=== PATIENT | male | born 2000 | race Caucasian/White ===

== ENCOUNTER 2023-01-15 09:30 | Inpatient (IN) | payer BC, SELFPAY ==
[2023-01-15 09:36] VITALS: BP 103/59; BP 124/77; PULSE 77; PULSE 78; RESP 16; TEMP 36.6; O2SAT 100; O2SAT 97; BMI 19.0
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
--- NOTE | 2023-01-15 10:02 | PC.NURSE ---
pt arrived to ED6 by ambulance. pt was staying with his father, Bryant, after moving back here from [place]. per father, he has concerns about pt using something because hes just not right . father reports that he found pt on the floor this morning with vomit on his shirt and around his mouth. pt in unkept in his presentation, vacant expression, malodorous. requires several redirection before following direction. pt denies SI/HI/SHB. father reports he is fearful pt might do something to harm himself. pt stumbling and unsteady in his gait. SHILPA Wade made aware. pt changed over into [facility], NOT [facility] as not indicated. denies AVH. reporting racing thoughts, depression. reports he takes medical marijuana, denies other drug use.
[2023-01-15 10:09] VITALS: BP 111/74
[2023-01-15 10:25] LABS: MANUAL DIFF FLAG NO
[2023-01-15 10:26] LABS: Basophils Percent Auto 0.6 % (0-2); Eosinophils Absolute Auto 0.1 X10*3/uL (0.0-0.4); Eosinophils Percent Auto 2.3 % (0-4); Hematocrit 43.7 % (42.0-52.0); Hemoglobin 15.2 g/dl (14.0-18.0); Imm Gran Abs Auto 0.01 X10*3/uL (0.00-0.03); Imm Gran Pct Auto 0.2 % (0.0-0.4); Lymphocytes Absolute Auto 1.2 X10*3/uL (1.2-4.9); Lymphocytes Percent Auto 24.2 % (20-40); Mean Corpuscular HGB Conc 34.8 g/dl (31.0-36.0); Mean Corpuscular Hemoglobin 32.3 pg (27.0-33.0); Mean Platelet Volume 10.3 fL (9.4-12.4); Monocytes Absolute Auto 0.6 X10*3/uL (0.1-1.2); Monocytes Percent Auto 12.2 % (2-11); Neutrophils Absolute Auto 2.9 x10*3/uL (2.0-8.3); Neutrophils Percent Auto 60.5 % (45-73); Platelet Count 238 X10*3/uL (160-400); Red Cell Distribution Width 11.2 % (11.0-16.0); White Blood Count 4.8 X10*3/uL (4.8-10.8)
--- OUTSIDE RECORDS SUMMARY | 2023-01-15 10:40 | XMS_ITS | Continuity of Care Document ---
Author Name Unknown Organization [facility] er Address [address] [address]- Care Team Providers Care Honing Machine Operator Semiautomatic Name Role Phone Conchita MATUTE, Eddi Pereyra Primary Care Physician Encounter [facility] ACCT R [id number] Date(s): 12/02/19 - 01/01/[address] [address]- [facility] Attending Physician: Krunal Engel Admitting Physician: Krunal Engel Referring Physician: Krunal Engel Allergies, Adverse Reactions, Alerts Substance Reaction Severity Status NKA Active Medications hydrOXYzine hydrochloride 25 mg oral tablet See Instructions, 1 -2 tablet By Mouth daily at bedtime for insomnia., 0 Refills, Maintenance, 11/09/19 13:41:00 EDT Start Date: 11/09/19 Status: Ordered LORazepam 0.5 mg oral tablet 1 tablet = 0.5 mg, By Mouth, Daily, PRN as needed for anxiety, 0 Refills, Maintenance, 11/09/19 13:40:00 EDT Start Date: 11/09/19 Status: Ordered Zoloft 25 mg oral tablet 2 tablet = 50 mg, By Mouth, Daily, 0 Refills, Maintenance, 11/09/19 13:40:00 EDT Start Date: 11/09/19 Status: Ordered Problem List Condition Effective Dates Status Health Status Inform ant Heart murmur(Confirmed) Active Vocal cord dysfunction(Confirmed) Active Social History Social History Type Response Smoking Status Never smoker entered on: 02/09/15 Sex
--- OUTSIDE RECORDS SUMMARY | 2023-01-15 10:40 | XMS_ITS | Continuity of Care Document ---
Author Name Unknown Organization [facility] er Address [address] [address]- Care Team Providers Care Aviation Electrician Name Role Phone Conchita MATUTE, Eddi Pereyra Primary Care Physician [place] [facility] [place] [id number] Date(s): 11/25/19 - 01/01/[address] [address]- [facility] Attending Physician: Carolyn Webb Admitting Physician: Carolyn Webb Allergies, Adverse Reactions, Alerts Substance Reaction Severity [...]
--- NOTE | 2023-01-15 10:41 | PC.NURSE ---
father, bry, informed this marketing copywriter that his is currently working on obtaining a section 35 on the pt
--- OUTSIDE RECORDS SUMMARY | 2023-01-15 10:41 | XMS_ITS | Continuity of Care Document ---
Author Name Unknown Organization [facility] Address [address] [place] [address]- Care Team Providers Care Campground Manager Name Role Phone Conchita MATUTE, Eddi Pereyra Primary Care Physician Encounter [facility] Date(s): 11/22/19 - 03/08/20 [facility] [address] [place] [address]- [facility] Attending Physician: Jamison Corcoran MD Referring Physician: Eddi Arango MD Allergies, Adverse Reactions, Alerts Substance Reaction Severity [...]
--- OUTSIDE RECORDS SUMMARY | 2023-01-15 10:41 | XMS_ITS | Continuity of Care Document ---
Author Name Unknown Organization [facility] ter Address [address] [place] [address]- Care Team Providers Care Marble Cutter Name Role Phone Eddi Arango MD Primary Care Physician Encounter [facility] Date(s): 06/30/19 - 06/30/[address] [address]- [facility] Attending Physician: Eddi Arango MD Allergies, Adverse Reactions, Alerts Substance Reaction Severity Status NKA Active Medications Acetaminophen 0 Refills, Maintenance, 02/05/17 4:40:54 Start Date: 02/05/17 Status: Ordered Problem List Condition Effective Dates Status Health Status Inform ant Heart murmur(Confirmed) Active Vocal cord dysfunction(Confirmed) Active Social History Social History Type Response Smoking Status Never smoker entered on: 02/09/15 Sex
--- OUTSIDE RECORDS SUMMARY | 2023-01-15 10:41 | XMS_ITS | Continuity of Care Document ---
Author Name Unknown Organization [facility] Address [address] [place] [address]- Care Team Providers Care Chinese Medicine Practitioner Name Role Phone Conchita MATUTE, Eddi Pereyra Primary Care Physician Encounter [facility] Date(s): 02/07/20 - 03/08/20 [facility] [address] [place] [address]- [facility] Attending Physician: Krunal Engel Admitting Physician: AdmKrunal rubio Referring Physician: Admtr ArBarbara Allergies, Adverse Reactions, Alerts Substance Reaction Severity [...]
--- OUTSIDE RECORDS SUMMARY | 2023-01-15 10:41 | XMS_ITS | Continuity of Care Document ---
Author Name Unknown Organization [facility] Address [address] [place] [address]- Care Team Providers Care Diet Attendant Name Role Phone Eddi Arango MD Primary Care Physician Encounter [facility] NBR [id number] Date(s): 09/02/19 - 12/31/19 [facility] [address] [place] [address]- [facility] Attending Physician: Jamison Corcoran MD [...]
--- OUTSIDE RECORDS SUMMARY | 2023-01-15 10:42 | XMS_ITS | Continuity of Care Document ---
Author Name Unknown Organization [facility] er Address [address] [address]- Care Team Providers Care Load Blocker Name Role Phone Conchita MATUTE, Eddi Pereyra Primary Care Physician Encounter [facility] ACCT R [id number] Date(s): 11/25/19 - 12/02/[address] [address]- [facility] Attending Physician: Carolyn Webb Admitting Physician: Carolyn [...]
[2023-01-15 10:58] LABS: COVID-19 Test Negative (Negative); IDNOW Serial# BCCEAD1C
[2023-01-15 11:14] LABS: Alanine Aminotransferase 42 U/L (0-40); Albumin Level 4.5 g/dL (3.5-5.0); Alkaline Phosphatase 53 U/L (39-117); Anion Gap 14 (12-20); Aspartate Amino Transferase 27 U/L (5-37); Bilirubin Total 0.9 mg/dL (0.0-1.0); Blood Urea Nitrogen 20 mg/dL (9-16); Calcium 10.4 mg/dL (8.4-10.2); Carbon Dioxide 28 mmol/L (22-29); Chloride 105 mmol/L (96-108); Creatinine Clr Calc Pharmacy 135.2; Estimated Glomerular Filt Rate > 60; Ethanol < 10 mg/dL; Glucose Random 72 mg/dL (60-115); Potassium 3.8 mmol/L (3.3-5.1); Salicylate < 5.0 mg/dL (15-30); Sodium 143 mmol/L (135-145); Total Protein 7.5 g/dL (6.5-8.0)
[2023-01-15 11:39] VITALS: BP 106/59; PULSE 71; O2SAT 97
--- NOTE | 2023-01-15 11:52 | PC.NURSE ---
pt very lethargic. unable to wake at this time. per dad, pt has startle reflex. VSS. awaiting urine for U/A and MICHEL. will continue to monitor
[2023-01-15 11:53] LABS: Acetaminophen LAB < 17 mcg/mL (<30)
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
--- NOTE | 2023-01-15 12:28 | MHC.CARE ---
RN and attending provider aware CARE Team needs toxicology screen prior to intervention due to suspected substance use
--- NOTE | 2023-01-15 13:12 | MHC.CARE ---
CARE Team received a call from [place] Pt has an active Section 35 Warrant
--- NOTE | 2023-01-15 14:04 | ECG_ITS ---
Test Reason : SUBSTANCE USE Blood Pressure : / mmHG Vent. Rate : 058 BPM Atrial Rate : 058 BPM P-R Int : 156 ms QRS Dur : 088 ms QT Int : 396 ms P-R-T Axes : 069 061 050 degrees QTc Int : 388 ms Sinus bradycardia with sinus arrhythmia Early repolarization Otherwise normal ECG No previous ECGs available Referred By: Niurka Tejeda Electronically Signed By:JANIE MCCLELLAN MD
[2023-01-15 15:09] VITALS: BP 104/61; PULSE 66; RESP 14; O2SAT 97
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
--- NOTE | 2023-01-15 15:33 | PC.NURSE ---
pt is ambulatory with unsteady gait but isn't falling down. speech is somewhat slow but clear. axox2. states he smokes marajuana nightly to manage intrusive thoughts . is aware that a urine sample is needed. states he has a shy bladder . awaits crisis eval.
--- NOTE | 2023-01-15 17:08 | MHC.CARE ---
Patient's mother, Vannesa Huerta [phone] calls to relay more background info, she is acutely concerned about his risk. While this instance is remote she reports that two years ago, while on vacation in [facility] patient's mother received a call from [place] police notifying her that they had gotten a call with report that patient had made a facebook / or social media post that he was going to commit suicide. At the time of the [employer] PD's call, patient was with his mom, in the house, and within her sight at all times. She [facility] of this, and did not follow up with any are JO[facility] or ED. Mom asks repeatedly if her son will be d/c without her knowing, and she is re-assured he will not be. Between the need for a CARE team assessment and the active section 35 warrant.
--- NOTE | 2023-01-15 17:17 | PC.NURSE ---
During interaction with pt, he continues to excessively lose focus, when being asked questions, or spoken too. Pt stated that he hears intrusive thoughts, and talks to himself about them. Pt stated he wants to speak to his environmental attorney, but does not know the number.
--- NOTE | 2023-01-15 18:15 | PC.NURSE ---
continues to go to br with cup but never provides urine sample.
--- NOTE | 2023-01-15 18:50 | MHC.CARE ---
attempted to encourage patient to urinate in order to commence the assessment. While attempting to engage him, he reports that he is here because of his mother's mental health issues, states he has only been using cannabis in lieu of prescribed anti depressants etc. T/w inquired into his food intake/ as he appears unsteady on his feet. He reports a history of outpatient treatment. Reports he has been suicidal years ago but is adamant that it was due to side effects of SSRI. He does present with a vacant affect at times, with pauses of notable length during questions. T/w again, reiterated the need to urinate in order to move things along and determine what happens next. He is unaware he has been section 35.
[2023-01-15 19:56] LABS: Appearance Urine Clear; Color Urine Yellow; Glucose Urine UA Negative (Negative); Leukocyte Esterase Urine Negative (Negative); Nitrite Urine Negative (Negative); Specific Gravity - Urine 1.025 (1.005-1.025); Urine Blood Negative (Negative); Urine Ketones Negative (Negative); Urine Protein Negative (Neg-Trace)
[2023-01-15 20:04] LABS: Amphetamine Screen Urine Not Detected (Not Detect); Barbiturates, Urine Not Detected (Not Detect); Benzodiazepines Screen Urine POSITIVE (Not Detect); Cannabinoid Screen Urine POSITIVE (Not Detect); Cocaine Screen Urine Not Detected (Not Detect); Fentanyl, urine Not Detected (Not Detect); Opiate Screen Urine Not Detected (Not Detect); Phencyclidine Screen Urine Not Detected (Not Detect)
--- NOTE | 2023-01-15 20:04 | PC.NURSE ---
per report patient had not voided for 9+ hours with moderate fluid intake, patient was encouraged to void but failed reported he as urinary retention problems, bladder scanned showed 1200 ml of urine, provider notified/spoke with patient/ordered Hopkins catheter, patient was transferred to main ED Bed 3, Hopkins inserted/patient tolerated the procedure/output 1300 ml, provider notified of outcome and procedure, patient is currently in bed resting, urine sample sent for urinalysis, care team notified, patient is awaiting care team assessment, will continue to monitor.
[2023-01-16 06:10] VITALS: BP 109/72; PULSE 60; RESP 16; TEMP 36.6; O2SAT 98
--- NOTE | 2023-01-16 06:23 | PC.NURSE ---
Patient slept through the night, no distress observed/reported, no behavior concerns, patient has Hopkins leg bag, output at 0427 250 ml, care consult ordered for SI, pending evaluation, VSS, will continue to monitior.
--- NOTE | 2023-01-16 08:13 | PC.NURSE ---
pt resting comfortably in stretcher, rr even unlabored, had msu with care team this am. pt reportedly appealing to have pt under sec [address] [facility] for dc needs.
[2023-01-16 14:47] VITALS: BP 125/75; PULSE 60; RESP 18; TEMP 36.6; O2SAT 98
--- NOTE | 2023-01-16 16:41 | PC.ADMIT ---
Tez was admitted to at 1430 from [facility] on [facility] for treatment of depressive disorder. The precipitant of admission includes conflict with family and difficulty obtaining outside providers. He is alert and oriented x4. He was cooperative with admission process. He reports his mood is depressed and attributes this to his family situation. He denies current suicidal and homicidal thoughts and intent. He denies auditory and visual hallucinations. He reports he is able to seek out staff for help if feeling unsafe for any reason. He reports daily marijuana use and states he uses it as a sleep aid. He reports appetite and sleep are poor. Tez states his appetite is up and down and reports frequent nightmares. Tez states that he recently moved back in with his mother and step father, and reports a strained relationship with parents. He states almost all of my problems are because of my mom . Per crisis, EMS was called by parents, who suspected Tez had overdosed on marijuana. Patient reports urinary retention since age 14. Tez was placed on 15 minute checks for safety.
[2023-01-16 16:53] VITALS: BMI 18.4
[2023-01-16 19:55] VITALS: BP 127/76; PULSE 53; RESP 18; TEMP 36.3; O2SAT 97
--- NOTE | 2023-01-16 23:04 | PC.NURSE ---
bladder scan-reporting not being able to void with pain in lower r side quadrant. scan for 580 residual. straigth cath for 700 and follow up residual scan of 126. patient reports relief of abdominal discomfort and tolerated procedure well. urine dark daysi, clear.
[2023-01-17] MEDS: traZODone HCL 50 MG TABLET PO ×2 (01:11→20:32)
[2023-01-17] MEDS: Nicotine Polacrilex 2 MG GUM BUCCAL ×5 (01:11→20:35)
[2023-01-17 07:56] LABS: Estimated Average Glucose 85 mg/dL; Hemoglobin A1c % 4.6 %
[2023-01-17 08:14] LABS: Alanine Aminotransferase 44 U/L (0-40); Alkaline Phosphatase 55 U/L (39-117); Anion Gap 13 (12-20); Aspartate Amino Transferase 27 U/L (5-37); Bilirubin Total 1.2 mg/dL (0.0-1.0); Blood Urea Nitrogen 15 mg/dL (9-16); Calcium 9.8 mg/dL (8.4-10.2); Carbon Dioxide 26 mmol/L (22-29); Chloride 105 mmol/L (96-108); Cholesterol 121 mg/dL; Creatinine Clr Calc Pharmacy 120.4; Estimated Glomerular Filt Rate > 60; Glucose Fasting 91 mg/dL (60-99); HDL Cholesterol 45 mg/dL; LDL Cholesterol Calculated 68 mg/dl; Potassium 4.2 mmol/L (3.3-5.1); Sodium 140 mmol/L (135-145); Total Protein 7.4 g/dL (6.5-8.0); Triglycerides 40 mg/dL
[2023-01-17 08:29] LABS: Free T4 (Free Thyroxine) 0.89 ng/dL (0.71-1.85); Thyroid Stimulating Hormone 0.52 uIU/mL (0.32-4.0)
[2023-01-17 08:39] LABS: Folate 14.2 ng/mL (> or = 4.0); Vitamin B12 1343 pg/mL (200-900)
[2023-01-17 08:57] VITALS: BP 117/70; PULSE 55; RESP 18; TEMP 36.4; O2SAT 97
[2023-01-17] MEDS: Escitalopram Oxalate 10 MG TABLET PO (08:57)
--- NOTE | 2023-01-17 09:33 | PC.NURSE ---
Initial bladder scan showed 455, patient declined initial stratight cath. Taking hot shower which helps him to void.
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
--- NOTE | 2023-01-17 16:13 | PC.NURSE ---
Bladder scan showed 356ml in bladder. Patient requesting to shower before straight cath stating it is helpful with voiding. Declined straight cath at this time.
[2023-01-17] MEDS: cloNIDine HCL 0.1 MG TABLET PO ×2 (16:58→20:32)
--- NOTE | 2023-01-17 17:17 | PC.NURSE ---
Patient reports he voided following his shower. Post void 6ml. No straight cath indicated at this time.
--- NOTE | 2023-01-17 17:42 | PC.NURSE ---
Patient signed conditional voluntary.
[2023-01-17 19:55] VITALS: BP 116/64; PULSE 66; RESP 18; TEMP 36.4; O2SAT 99
[2023-01-18 09:00] VITALS: BP 136/75; PULSE 64; RESP 16; TEMP 35.9; O2SAT 97
[2023-01-18] MEDS: Nicotine Polacrilex 2 MG GUM BUCCAL ×4 (09:02→19:01)
[2023-01-18] MEDS: Milk of Magnesia 30 ML ORAL.SUSP PO (09:26)
[2023-01-18] MEDS: Escitalopram Oxalate 10 MG TABLET PO (09:26)
--- NOTE | 2023-01-18 10:03 | PC.NURSE ---
Patient declined pre void bladder scan. Showered, reported voiding.
--- NOTE | 2023-01-18 10:30 | PC.NURSE ---
Post void bladder scan 29ml.
--- NOTE | 2023-01-18 10:46 | HO.PSYCHPN ---
Subjective Subjective Date of Service: 01/18/23 Reason For Visit: si overdose Interim History: Met with patient; discussed with team Patient said he is doing much better. Feels that the clonidine is extremely helpful and commented on how much easier and was for him to interact socially in the milieu. Patient also reported sleeping. Patient had a good conversation with his father says plan is to live with him on discharge. Patient did sign in yesterday on a CV but later on decided to place a 3 day notice. He remains eager to get set up with outpatient providers. Discussed medication and Lexapro had been started by other physician when orders were transferred. Patient said he wants to stay way from SSRIs given his past experience and agrees to instead increase Trileptal (functional tester typewriters had reviewed risks/side effects this medication with which patient understood and agrees to continue) Patient reports only has trouble urinating and defecating when in the vicinity of other people; in private no trouble Mental Status Exam Mental Status Exam Narrative: Pt is alert and oriented; behavior is cooperative, calm, friendly; patient is not in distress; dressed in hospital attire with good hygiene; mood is described as good and affect congruent; eye contact appropriate; Speech is normal rate, volume and prosody and not pressured; no psychomotor agitation/retardation present; thought process is organized and goal directed; Thought content is on aftercare; otherwise pertinent to relevant topics and without any delusional content, paranoid ideations or grandiosity; denies any SI/HI. There is no evidence of perceptual disturbance. Patients insight and judgment fair Diagnostics Vital Signs (24Hr): Vital Signs - 24 hr 01/17/23 19:55 01/18/23 09:00 Temperature 97.5 F 96.7 F L Pulse Rate 66 64 Respiratory Rate 18 16 Blood Pressure 116/64 136/75 Pulse Oximetry 99 97 Oxygen Delivery Method Room Air Room Air BMI result Body Mass Index 18.4 Labs 01/15/23 10:20 01/17/23 07:00 Labs: Laboratory Results - last 48 hr 01/17/23 01/17/23 01/17/23 07:00 07:00 07:00 Sodium 140 Potassium 4.2 Chloride 105 Carbon Dioxide 26 Anion Gap 13 BUN 15 Creatinine 0.83 Estim Creat Clear Calc 120.4 Estimated GFR > 60 Fasting Glucose 91 Estimat Average Glucose 85 Hemoglobin A1c % 4.6 Calcium 9.8 Total Bilirubin 1.2 H AST 27 ALT 44 H Alkaline Phosphatase 55 Total Protein 7.4 Albumin 4.0 Triglycerides 40 Cholesterol 121 LDL Cholesterol, Calc 68 HDL Cholesterol 45 Vitamin B12 1343 H Folate 14.2 TSH 0.52 Free T4 0.89 Medications Medications Current Medications Acetaminophen (Acetaminophen 325 Mg Tablet) 650 mg PO Q6H PRN PRN Reason: Headache/Pain Mild Scale (1-3) Al Hydroxide/Mg Hydroxide (Magnesium Hydrox/Alum Hydrox 30 Ml Oral.Susp) 30 ml PO Q6H PRN PRN Reason: Heartburn/Nausea Clonidine HCl (Clonidine Hcl 0.1 Mg Tablet) 0.1 mg PO BEDTIME JODY; Protocol Last Admin: 01/17/23 20:32 Dose: 0.1 mg Clonidine HCl (Clonidine Hcl 0.1 Mg Tablet) 0.1 mg PO Q4H PRN; Protocol PRN Reason: anxiety Escitalopram Oxalate (Escitalopram Oxalate 10 Mg Tablet) 10 mg PO DAILY JODY Last Admin: 01/18/23 09:26 Dose: 10 mg Magnesium Hydroxide (Milk Of Magnesia 30 Ml Oral.Susp) 30 ml PO DAILY PRN PRN Reason: Constipation Last Admin: 01/18/23 09:26 Dose: 30 ml Nicotine Polacrilex (Nicotine Polacrilex 2 Mg Gum) 2 mg BUCCAL Q2H PRN PRN Reason: Nicotine Cravings Last Admin: 01/18/23 09:02 Dose: 2 mg Oxcarbazepine (Oxcarbazepine 150 Mg Tablet) 150 mg PO BID JODY Trazodone HCl (Trazodone Hcl 50 Mg Tablet) 50 mg PO BEDTIME MRX1 PRN PRN Reason: Insomnia Last Admin: 01/17/23 20:32 Dose: 50 mg Allergies Allergies Allergy/AdvReac Type Severity Reaction Status Date / Time No Known Allergies Allergy Unverified 03/22/20 19:37 [No Known Allergies*] Assessment & Plan Assessment & Plan (1) Post-traumatic stress disorder: Status: Acute Code(s): F43.10 - Post-traumatic stress disorder, unspecified (2) MDD (major depressive disorder), recurrent severe, without psychosis: Status: Acute Code(s): F33.2 - Major depressive disorder, recurrent severe without psychotic features Plan Patient is a 22-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 Patient has a urinary Hopkins catheter in place reporting history of trouble urinating since childhood. Patient's mother reports that for the past 3 or 4 days he has remained in his room only, not eating at all, not attending to any ADLs. She reports he talked about suicide and that he had bought a rope in preparation; mother reports that she did in fact find a rope in his room. Patient says he did say he did not feel like in here anymore but never said he was suicidal and denies that he ever bought a rope or that that rope was his. Patient is very focused on the fact that his mother is emotionally reactive and emotionally abusive. He agrees that he was having a hard time but saying that he was talking to his friends online which he found comforting. Patient breaks down in sob, saying he feels rejected and broken; he references past severe bullying in school in addition to what he feels was and emotionally abusive upbringing. Patient however is very open to treatment and medication management. He also agrees that he needs a therapist just wants 1 that is private will not reveal things to his mother. Patient denies any history of manic type episodes or behaviors. Denies other drug use other than cannabis. Impression Patient agrees that he needs help and is eager to see if medication management will be effective; also wants outpatient providers. It is not clear exactly what happened prior to this admission and to what degree patient was dysregulated or suicidal. He remains adamant that he was never actually suicidal and that he did not get a rope that his mother is exaggerating and fabricating. Patient continues to deny any SI at all. He says he thinks he doing well enough and that he can use his friends for support. Patient did come down over course of interview and seemed to be engaged and forthcoming. The remains significant difference is in reporting. For now, Will keep patient on the unit to demonstrate continued safety and appropriate, safe behaviors, as well as medication management; will also gather more collateral. Hospital course: 01/18 patient doing much better with noticeably brighter affect; feels clonidine has helped so much that he is able to interact with others with little anxiety. Agrees to increasing Trileptal since does not want to be on SSRI. Patient did sign in but then later put in a 3 day notice feeling that he will be stable and able to continue treatment as an outpatient; he does however want help getting outpatient providers. Patient remains in good behavioral and impulse control. His plan is to discharge and limit his father's. Plan: 3 day notice Q 15 minute checks Labs ordered for 01/20: Musa, BRADLY Continue clonidine 0.1 mg q.h.s. for sleep and as a for p.r.n. for anxiety; helping well Increase Trileptal to 300 mg b.i.d.; for anxiety given adverse reaction to SSRIs which included suicidal ideation Help set up outpatient providers for which patient is eager Continue to gather collateral. Significant history of parent-child discord which might make collateral gathering difficult Patient educated on: diagnosis, medication risk/benefits and therapeutic strategies Informed Consent: understands Reason for continued inpatient stay Substantial Risk for: stable for discharge and med/psych decompensation Time Spent With Patient Time: Total time managing care of this patient today ____ minutes.
[2023-01-18] MEDS: cloNIDine HCL 0.1 MG TABLET PO ×2 (15:20→20:46)
--- NOTE | 2023-01-18 17:18 | PC.NURSE ---
Bladder scan completed. Greater than 326. Patient reports he is going to shower. Patient declines straight cath needed at this time.
--- NOTE | 2023-01-18 17:19 | PC.NURSE ---
Tez had just gotten out of the shower, reported voiding during shower. Upon bladder scanning, no distention noted, when asked if he had any pain or discomfort stated No. Bladder scanned showed 4mL
--- NOTE | 2023-01-18 17:53 | PC.NURSE ---
Patient submitted 3 day note.
[2023-01-18 20:44] VITALS: BP 144/96; PULSE 74; TEMP 37; O2SAT 94
[2023-01-18] MEDS: OXcarbazepine 300 MG TABLET PO (20:46)
[2023-01-19 08:40] VITALS: BP 129/71; PULSE 75; RESP 16; TEMP 36.4; O2SAT 96
[2023-01-19] MEDS: OXcarbazepine 300 MG TABLET PO ×2 (08:41→21:11)
[2023-01-19] MEDS: Nicotine Polacrilex 2 MG GUM BUCCAL ×4 (09:07→21:27)
--- NOTE | 2023-01-19 11:42 | HO.PSYCHPN ---
Subjective Subjective Date of Service: 01/19/23 Reason For Visit: si overdose Interim History: Met with patient; discussed with team Patient reports he had a panic attack earlier today when licensed master social worker was reviewing relationship with his mother and history of trauma was discussed. He said clonidine was significantly helpful in calming down. Otherwise patient says he remains doing much better, good mood, future oriented and without any SI at all. Patient shares that he is optimistic about getting into outpatient treatment. Remains focused on discharge plan of going to his father's. Says medications are helping any wants to continue with them. Patient has remained in good behavioral and impulse control Mental Status Exam Mental Status Exam Narrative: Pt is alert and oriented; behavior is cooperative, calm, friendly; patient is not in distress; dressed in hospital attire with good hygiene; mood is described as good and affect congruent; eye contact appropriate; Speech is normal rate, volume and prosody and not pressured; no psychomotor agitation/retardation present; thought process is organized and goal directed; Thought content is on aftercare; otherwise pertinent to relevant topics and without any delusional content, paranoid ideations or grandiosity; denies any SI/HI. There is no evidence of perceptual disturbance. Patients insight and judgment fair Diagnostics Vital Signs (24Hr): Vital Signs - 24 hr 01/18/23 20:44 01/19/23 08:40 Temperature 98.6 F 97.5 F Pulse Rate 74 75 Respiratory Rate 16 Blood Pressure 144/96 H 129/71 Pulse Oximetry 94 96 Oxygen Delivery Method Room Air Room Air BMI result Body Mass Index 18.4 Labs 01/15/23 10:20 01/17/23 07:00 Medications Medications Current Medications Acetaminophen (Acetaminophen 325 Mg Tablet) 650 mg PO Q6H PRN PRN Reason: Headache/Pain Mild Scale (1-3) Al Hydroxide/Mg Hydroxide (Magnesium Hydrox/Alum Hydrox 30 Ml Oral.Susp) 30 ml PO Q6H PRN PRN Reason: Heartburn/Nausea Clonidine HCl (Clonidine Hcl 0.1 Mg Tablet) 0.1 mg PO BEDTIME JODY; Protocol Last Admin: 01/18/23 20:46 Dose: 0.1 mg Clonidine HCl (Clonidine Hcl 0.1 Mg Tablet) 0.1 mg PO Q4H PRN; Protocol PRN Reason: anxiety Last Admin: 01/18/23 15:20 Dose: 0.1 mg Magnesium Hydroxide (Milk Of Magnesia 30 Ml Oral.Susp) 30 ml PO DAILY PRN PRN Reason: Constipation Last Admin: 01/18/23 09:26 Dose: 30 ml Nicotine Polacrilex (Nicotine Polacrilex 2 Mg Gum) 2 mg BUCCAL Q2H PRN PRN Reason: Nicotine Cravings Last Admin: 01/19/23 09:07 Dose: 2 mg Oxcarbazepine (Oxcarbazepine 300 Mg Tablet) 300 mg PO BID JODY Last Admin: 01/19/23 08:41 Dose: 300 mg Trazodone HCl (Trazodone Hcl 50 Mg Tablet) 50 mg PO BEDTIME MRX1 PRN PRN Reason: Insomnia Last Admin: 01/17/23 20:32 Dose: 50 mg Allergies Allergies Allergy/AdvReac Type Severity Reaction Status Date / Time No Known Allergies Allergy Unverified 03/22/20 19:37 [No Known Allergies*] Assessment & Plan Assessment & Plan (1) Post-traumatic stress disorder: Status: Acute Code(s): F43.10 - Post-traumatic stress disorder, unspecified (2) MDD (major depressive disorder), recurrent severe, without psychosis: Status: Acute Code(s): F33.2 - Major depressive disorder, recurrent severe without psychotic features Plan Patient is a 22-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 Patient has a urinary Hopkins catheter in place reporting history of trouble urinating since childhood. Patient's mother reports that for the past 3 or 4 days he has remained in his room only, not eating at all, not attending to any ADLs. She reports he talked about suicide and that he had bought a rope in preparation; mother reports that she did in fact find a rope in his room. Patient says he did say he did not feel like in here anymore but never said he was suicidal and denies that he ever bought a rope or that that rope was his. Patient is very focused on the fact that his mother is emotionally reactive and emotionally abusive. He agrees that he was having a hard time but saying that he was talking to his friends online which he found comforting. Patient breaks down in sob, saying he feels rejected and broken; he references past severe bullying in school in addition to what he feels was and emotionally abusive upbringing. Patient however is very open to treatment and medication management. He also agrees that he needs a therapist just wants 1 that is private will not reveal things to his mother. Patient denies any history of manic type episodes or behaviors. Denies other drug use other than cannabis. Impression Patient agrees that he needs help and is eager to see if medication management will be effective; also wants outpatient providers. It is not clear exactly what happened prior to this admission and to what degree patient was dysregulated or suicidal. He remains adamant that he was never actually suicidal and that he did not get a rope that his mother is exaggerating and fabricating. Patient continues to deny any SI at all. He says he thinks he doing well enough and that he can use his friends for support. Patient did come down over course of interview and seemed to be engaged and forthcoming. The remains significant difference is in reporting. For now, Will keep patient on the unit to demonstrate continued safety and appropriate, safe behaviors, as well as medication management; will also gather more collateral. Hospital course: 01/18 patient doing much better with noticeably brighter affect; feels clonidine has helped so much that he is able to interact with others with little anxiety. Agrees to increasing Trileptal since does not want to be on SSRI. Patient did sign in but then later put in a 3 day notice feeling that he will be stable and able to continue treatment as an outpatient; he does however want help getting outpatient providers. Patient remains in good behavioral and impulse control. His plan is to discharge and limit his father's. 01/19 patient remains stable; did have a panic attack but was able to use clonidine to good effect. Otherwise remains in good behavioral and impulse control. Plan: 3 day notice Q 15 minute checks Labs ordered for 01/20: BRADLY Vigil Continue clonidine 0.1 mg q.h.s. for sleep and as a for p.r.n. for anxiety; helping well Continue Trileptal to 300 mg b.i.d.; for anxiety given adverse reaction to SSRIs which included suicidal ideation -ordered associated labs Help set up outpatient providers for which patient is eager Continue to gather collateral. Significant history of parent-child discord which might make collateral gathering difficult Patient educated on: diagnosis, medication risk/benefits and therapeutic strategies Informed Consent: understands Reason for continued inpatient stay Substantial Risk for: stable for discharge Time Spent With Patient Time: Total time managing care of this patient today ____ minutes.
[2023-01-19] MEDS: cloNIDine HCL 0.1 MG TABLET PO ×2 (12:37→21:11)
--- NOTE | 2023-01-19 16:32 | PC.NURSE ---
Patient declined AM bladder scan. Reports voiding following shower. Approached for 1600 bladder scan, reports voiding about 1 hour ago . Denies any discomfort or pressure at this time.
[2023-01-19 20:58] VITALS: BP 129/92; PULSE 67; RESP 16; TEMP 36.5; O2SAT 98
[2023-01-19] MEDS: Melatonin 3 MG TABLET 6 MG PO (21:11)
[2023-01-20 00:30] VITALS: BP 170/99; PULSE 126; RESP 22
[2023-01-20] MEDS: cloNIDine HCL 0.1 MG TABLET PO ×3 (00:42→16:19)
[2023-01-20] MEDS: traZODone HCL 50 MG TABLET PO ×2 (00:43→20:56)
[2023-01-20 08:30] VITALS: BP 140/74; PULSE 60; RESP 18; TEMP 36.9; O2SAT 97
[2023-01-20 08:33] LABS: MANUAL DIFF FLAG NO
[2023-01-20 08:42] LABS: Basophils Percent Auto 0.4 % (0-2); Eosinophils Percent Auto 0.1 % (0-4); Hematocrit 45.2 % (42.0-52.0); Hemoglobin 15.8 g/dl (14.0-18.0); Imm Gran Abs Auto 0.03 X10*3/uL (0.00-0.03); Imm Gran Pct Auto 0.4 % (0.0-0.4); Lymphocytes Absolute Auto 1.2 X10*3/uL (1.2-4.9); Lymphocytes Percent Auto 15.4 % (20-40); Mean Corpuscular Hemoglobin 32.4 pg (27.0-33.0); Mean Corpuscular Volume 92.8 fL (80.0-98.0); Mean Platelet Volume 10.5 fL (9.4-12.4); Monocytes Absolute Auto 0.7 X10*3/uL (0.1-1.2); Monocytes Percent Auto 8.5 % (2-11); Neutrophils Absolute Auto 5.8 x10*3/uL (2.0-8.3); Neutrophils Percent Auto 75.2 % (45-73); Platelet Count 254 X10*3/uL (160-400); Red Blood Count 4.87 X10*6/uL (4.60-5.80); Red Cell Distribution Width 11.1 % (11.0-16.0); White Blood Count 7.7 X10*3/uL (4.8-10.8)
[2023-01-20] MEDS: Nicotine Polacrilex 2 MG GUM BUCCAL ×3 (08:59→16:55)
[2023-01-20] MEDS: OXcarbazepine 300 MG TABLET PO ×2 (08:59→20:56)
[2023-01-20 09:12] LABS: Anion Gap 14 (12-20); Blood Urea Nitrogen 12 mg/dL (9-16); Calcium 10.1 mg/dL (8.4-10.2); Carbon Dioxide 26 mmol/L (22-29); Chloride 105 mmol/L (96-108); Creatinine Clr Calc Pharmacy 133.3; Estimated Glomerular Filt Rate > 60; Glucose Random 108 mg/dL (60-115); Sodium 141 mmol/L (135-145)
[2023-01-20 12:20] VITALS: BP 159/98; PULSE 91; RESP 18; O2SAT 97
--- NOTE | 2023-01-20 15:29 | HO.PSYCHPN ---
Subjective Subjective Date of Service: 01/20/23 Reason For Visit: si overdose Interim History: calm, cooperative. appears tense and anxious. discuss his positive response to clonidine. agrees to increase HS clonidine to 0.2 mg as he continues to have trouble sleeping. also agrees to schedule clonidine twice daily, at 1000 and 1600. per staff, 3-day up tomorrow. meds helpful, especially clonidine. panic attacks x 2 yesterday, although one sounded as thought it was really a nightmare. at the time of the nightmare, pt was described as psychotic, hyperverbal, disorganized. Mental Status Exam Mental Status Exam Narrative: Pt is alert and oriented; behavior is cooperative, calm, friendly; patient is not in distress; dressed in hospital attire with poor hygiene; mood is described as OK, i guess and affect congruent; eye contact appropriate; Speech is normal rate, volume and prosody and not pressured; no psychomotor agitation/retardation present; thought process is organized and goal directed; Thought content is non-psychotic; otherwise pertinent to relevant topics; denies any SI/HI. There is no evidence of perceptual disturbance. Patients insight and judgment fair Diagnostics Vital Signs (24Hr): Vital Signs - 24 hr 01/19/23 20:58 01/20/23 00:30 01/20/23 08:30 Temperature 97.7 F 98.4 F Pulse Rate 67 126 H 60 Respiratory Rate 16 22 H 18 Blood Pressure 129/92 H 170/99 H 140/74 H Pulse Oximetry 98 97 Oxygen Delivery Method Room Air Room Air 01/20/23 12:20 Temperature Pulse Rate 91 Respiratory Rate 18 Blood Pressure 159/98 H Pulse Oximetry 97 Oxygen Delivery Method Room Air BMI result Body Mass Index 18.4 Labs 01/20/23 08:26 01/20/23 08:26 Labs: Laboratory Results - last 48 hr 01/20/23 01/20/23 08:26 08:26 WBC 7.7 RBC 4.87 Hgb 15.8 Hct 45.2 MCV 92.8 MCH 32.4 MCHC 35.0 RDW 11.1 Plt Count 254 MPV 10.5 Immature Gran % (Auto) 0.4 Neut % (Auto) 75.2 H Lymph % (Auto) 15.4 L [place] % (Auto) 8.5 Eos % (Auto) 0.1 Baso % (Auto) 0.4 Lymph # (Auto) 1.2 [place] # (Auto) 0.7 Eos # (Auto) 0.0 Baso # (Auto) 0.0 Abs Immat Gran (auto) 0.03 Absolute Neuts (auto) 5.8 Absolute Nucleated RBC 0.000 Nucleated RBC % (auto) 0.0 Sodium 141 Potassium 4.0 Chloride 105 Carbon Dioxide 26 Anion Gap 14 BUN 12 Creatinine 0.75 Estim Creat Clear Calc 133.3 Estimated GFR > 60 Random Glucose 108 Calcium 10.1 Medications Medications Current Medications Acetaminophen (Acetaminophen 325 Mg Tablet) 650 mg PO Q6H PRN PRN Reason: Headache/Pain Mild Scale (1-3) Al Hydroxide/Mg Hydroxide (Magnesium Hydrox/Alum Hydrox 30 Ml Oral.Susp) 30 ml PO Q6H PRN PRN Reason: Heartburn/Nausea Clonidine HCl (Clonidine Hcl 0.1 Mg Tablet) 0.1 mg PO Q4H PRN; Protocol PRN Reason: anxiety Last Admin: 01/20/23 00:42 Dose: 0.1 mg Clonidine HCl (Clonidine Hcl 0.2 Mg Tablet) 0.2 mg PO BEDTIME JODY; Protocol Clonidine HCl (Clonidine Hcl 0.1 Mg Tablet) 0.1 mg PO BID@1000,1600 JODY; Protocol Magnesium Hydroxide (Milk Of Magnesia 30 Ml Oral.Susp) 30 ml PO DAILY PRN PRN Reason: Constipation Last Admin: 01/18/23 09:26 Dose: 30 ml Melatonin (Melatonin 3 Mg Tablet) 6 mg PO BEDTIME JODY Last Admin: 01/19/23 21:11 Dose: 6 mg Nicotine Polacrilex (Nicotine Polacrilex 2 Mg Gum) 2 mg BUCCAL Q2H PRN PRN Reason: Nicotine Cravings Last Admin: 01/20/23 12:26 Dose: 2 mg Oxcarbazepine (Oxcarbazepine 300 Mg Tablet) 300 mg PO BID JODY Last Admin: 01/20/23 08:59 Dose: 300 mg Trazodone HCl (Trazodone Hcl 50 Mg Tablet) 50 mg PO BEDTIME MRX1 PRN PRN Reason: Insomnia Last Admin: 01/20/23 00:43 Dose: 50 mg Allergies Allergies Allergy/AdvReac Type Severity Reaction Status Date / Time No Known Allergies Allergy Unverified 03/22/20 19:37 [No Known Allergies*] Assessment & Plan Assessment & Plan (1) Post-traumatic stress disorder: Status: Acute Code(s): F43.10 - Post-traumatic stress disorder, unspecified (2) MDD (major depressive disorder), recurrent severe, without psychosis: Status: Acute Code(s): F33.2 - Major depressive disorder, recurrent severe without psychotic features Plan Patient is a 22-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 Patient has a urinary Hopkins catheter in place reporting history of trouble urinating since childhood. Patient's mother reports that for the past 3 or 4 days he has remained in his room only, not eating at all, not attending to any ADLs. She reports he talked about suicide and that he had bought a rope in preparation; mother reports that she did in fact find a rope in his room. Patient says he did say he did not feel like in here anymore but never said he was suicidal and denies that he ever bought a rope or that that rope was his. Patient is very focused on the fact that his mother is emotionally reactive and emotionally abusive. He agrees that he was having a hard time but saying that he was talking to his friends online which he found comforting. Patient breaks down in sob, saying he feels rejected and broken; he references past severe bullying in school in addition to what he feels was and emotionally abusive upbringing. Patient however is very open to treatment and medication management. He also agrees that he needs a therapist just wants 1 that is private will not reveal things to his mother. Patient denies any history of manic type episodes or behaviors. Denies other drug use other than cannabis. Impression Patient agrees that he needs help and is eager to see if medication management will be effective; also wants outpatient providers. It is not clear exactly what happened prior to this admission and to what degree patient was dysregulated or suicidal. He remains adamant that he was never actually suicidal and that he did not get a rope that his mother is exaggerating and fabricating. Patient continues to deny any SI at all. He says he thinks he doing well enough and that he can use his friends for support. Patient did come down over course of interview and seemed to be engaged and forthcoming. The remains significant difference is in reporting. For now, Will keep patient on the unit to demonstrate continued safety and appropriate, safe behaviors, as well as medication management; will also gather more collateral. Hospital course: 01/18 patient doing much better with noticeably brighter affect; feels clonidine has helped so much that he is able to interact with others with little anxiety. Agrees to increasing Trileptal since does not want to be on SSRI. Patient did sign in but then later put in a 3 day notice feeling that he will be stable and able to continue treatment as an outpatient; he does however want help getting outpatient providers. Patient remains in good behavioral and impulse control. His plan is to discharge and limit his father's. Plan: 3 day notice Q 15 minute checks Labs ordered for 01/20: BRADLY Vigil Continue clonidine 0.1 mg q.h.s. for sleep and as a for p.r.n. for anxiety; helping well Increase Trileptal to 300 mg b.i.d.; for anxiety given adverse reaction to SSRIs which included suicidal ideation Help set up outpatient providers for which patient is eager Continue to gather collateral. Significant history of parent-child discord which might make collateral gathering difficult 01/20: increase HS clonidine to 0.2 mg. schedule clonidine during the day at 1000 and 1600. anxious, nightmares. Reason for continued inpatient stay Substantial Risk for: harm to self, inability to function and rapid decompensation Time Spent With Patient Time: Total time managing care of this patient today __25__ minutes.
[2023-01-20 16:20] VITALS: BP 154/98; PULSE 68; RESP 18
[2023-01-20 19:40] VITALS: BP 121/77; PULSE 60; RESP 18; TEMP 36.6; O2SAT 98
[2023-01-20] MEDS: Melatonin 3 MG TABLET 6 MG PO (20:56)
[2023-01-20] MEDS: cloNIDine HCL 0.2 MG TABLET PO (20:58)
[2023-01-21] MEDS: cloNIDine HCL 0.1 MG TABLET PO ×4 (02:29→16:04)
[2023-01-21] MEDS: Nicotine Polacrilex 2 MG GUM BUCCAL ×2 (02:29→22:36)
[2023-01-21 06:00] VITALS: BP 130/83; PULSE 66; RESP 20; TEMP 36.6; O2SAT 99
[2023-01-21] MEDS: OXcarbazepine 300 MG TABLET PO (08:47)
[2023-01-21] MEDS: Nicotine Polacrilex 2 MG GUM 4 MG BUCCAL (14:31)
[2023-01-21] MEDS: OLANZapine 5 MG TABLET PO (14:48)
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
--- NOTE | 2023-01-21 16:26 | PC.NURSE ---
patient had bladder scan at this time, 141 ML
[2023-01-21 20:00] VITALS: BP 128/79; PULSE 74; RESP 18; TEMP 36.6; O2SAT 99
[2023-01-21] MEDS: Melatonin 3 MG TABLET 6 MG PO (22:11)
[2023-01-21] MEDS: cloNIDine HCL 0.2 MG TABLET PO (22:12)
[2023-01-21] MEDS: traZODone HCL 50 MG TABLET PO (22:12)
[2023-01-21] MEDS: OLANZapine 10 MG TABLET PO (22:12)
[2023-01-21] MEDS: OXcarbazepine 150 MG TABLET PO (22:12)
[2023-01-22] MEDS: OLANZapine 5 MG TABLET PO ×2 (02:31→13:22)
[2023-01-22] MEDS: cloNIDine HCL 0.1 MG TABLET PO ×3 (02:32→15:58)
[2023-01-22 07:00] VITALS: BMI 18.0
[2023-01-22 10:16] VITALS: BP 154/92; PULSE 99; TEMP 37.1; O2SAT 97
[2023-01-22] MEDS: OXcarbazepine 150 MG TABLET PO ×2 (10:23→22:16)
[2023-01-22] MEDS: Nicotine Polacrilex 2 MG GUM 4 MG BUCCAL ×2 (10:25→20:12)
[2023-01-22] MEDS: OLANZapine 2.5 MG TABLET PO (15:58)
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
[2023-01-22] MEDS: diazePAM 5 MG TABLET PO ×2 (16:53→22:15)
[2023-01-22 16:56] LABS: MANUAL DIFF FLAG NO
[2023-01-22 17:00] LABS: Basophils Percent Auto 0.4 % (0-2); Eosinophils Percent Auto 0.1 % (0-4); Hematocrit 45.6 % (42.0-52.0); Hemoglobin 15.9 g/dl (14.0-18.0); Imm Gran Abs Auto 0.02 X10*3/uL (0.00-0.03); Imm Gran Pct Auto 0.3 % (0.0-0.4); Lymphocytes Absolute Auto 1.3 X10*3/uL (1.2-4.9); Lymphocytes Percent Auto 18.6 % (20-40); Mean Corpuscular HGB Conc 34.9 g/dl (31.0-36.0); Mean Corpuscular Hemoglobin 32.4 pg (27.0-33.0); Mean Corpuscular Volume 92.9 fL (80.0-98.0); Mean Platelet Volume 10.6 fL (9.4-12.4); Monocytes Absolute Auto 0.7 X10*3/uL (0.1-1.2); Monocytes Percent Auto 10.6 % (2-11); Neutrophils Absolute Auto 4.8 x10*3/uL (2.0-8.3); Platelet Count 265 X10*3/uL (160-400); Red Blood Count 4.91 X10*6/uL (4.60-5.80); Red Cell Distribution Width 11.3 % (11.0-16.0); White Blood Count 6.9 X10*3/uL (4.8-10.8)
[2023-01-22 19:40] VITALS: BP 125/69; PULSE 68; RESP 18; TEMP 36.6; O2SAT 98
[2023-01-22 20:37] LABS: Alanine Aminotransferase 38 U/L (0-40); Albumin Level 4.9 g/dL (3.5-5.0); Alkaline Phosphatase 61 U/L (39-117); Anion Gap 14 (12-20); Aspartate Amino Transferase 25 U/L (5-37); Bilirubin Total 0.7 mg/dL (0.0-1.0); Blood Urea Nitrogen 12 mg/dL (9-16); Carbon Dioxide 31 mmol/L (22-29); Chloride 105 mmol/L (96-108); Creatinine Clr Calc Pharmacy 120.1; Estimated Glomerular Filt Rate > 60; Glucose Random 90 mg/dL (60-115); Potassium 4.5 mmol/L (3.3-5.1); Sodium 145 mmol/L (135-145); Total Protein 8.1 g/dL (6.5-8.0)
[2023-01-22] MEDS: Melatonin 3 MG TABLET 6 MG PO (22:15)
[2023-01-22] MEDS: OLANZapine 10 MG TABLET PO (22:15)
[2023-01-22] MEDS: cloNIDine HCL 0.2 MG TABLET PO (22:15)
[2023-01-23] MEDS: cloNIDine HCL 0.1 MG TABLET PO ×2 (09:37→16:59)
[2023-01-23 09:40] VITALS: BP 137/83; PULSE 74; RESP 18; TEMP 36.6; O2SAT 99
[2023-01-23] MEDS: OLANZapine 2.5 MG TABLET PO ×2 (09:41→14:32)
[2023-01-23] MEDS: OXcarbazepine 150 MG TABLET PO (09:41)
[2023-01-23] MEDS: diazePAM 5 MG TABLET PO ×2 (09:41→22:35)
[2023-01-23] MEDS: Nicotine Polacrilex 2 MG GUM BUCCAL (13:40)
[2023-01-23] MEDS: Nicotine Polacrilex 2 MG GUM 4 MG BUCCAL (13:40)
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
[2023-01-23 16:57] VITALS: BP 126/77; PULSE 80
[2023-01-23 22:30] VITALS: BP 98/66; PULSE 61; RESP 18; TEMP 36.1; O2SAT 98
[2023-01-23] MEDS: Melatonin 3 MG TABLET 6 MG PO (22:35)
[2023-01-23] MEDS: cloNIDine HCL 0.2 MG TABLET PO (22:35)
[2023-01-23] MEDS: OLANZapine 10 MG TABLET PO (22:35)
[2023-01-24 08:42] VITALS: BP 122/70; PULSE 50; RESP 18; TEMP 36.2; O2SAT 98
[2023-01-24] MEDS: OLANZapine 2.5 MG TABLET PO ×2 (08:49→15:50)
[2023-01-24] MEDS: diazePAM 5 MG TABLET PO ×2 (08:49→22:19)
[2023-01-24] MEDS: cloNIDine HCL 0.1 MG TABLET PO ×2 (08:49→15:50)
[2023-01-24] MEDS: Nicotine Polacrilex 2 MG GUM 4 MG BUCCAL ×4 (09:12→22:49)
[2023-01-24 15:48] VITALS: BP 107/58; PULSE 68; RESP 16; O2SAT 99
--- NOTE | 2023-01-24 16:15 | PC.NURSE ---
Pt submitted 3 day notice
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
[2023-01-24 22:16] VITALS: BP 133/97; PULSE 77; RESP 18; TEMP 35.8; O2SAT 98
[2023-01-24] MEDS: Melatonin 3 MG TABLET 6 MG PO (22:19)
[2023-01-24] MEDS: OLANZapine 10 MG TABLET PO (22:19)
[2023-01-24] MEDS: cloNIDine HCL 0.2 MG TABLET PO (22:19)
[2023-01-25 06:00] VITALS: BP 127/69; PULSE 76; RESP 18; TEMP 36.6; O2SAT 98
[2023-01-25] MEDS: OLANZapine 2.5 MG TABLET PO ×2 (08:58→14:14)
[2023-01-25] MEDS: diazePAM 5 MG TABLET PO ×2 (08:58→20:14)
[2023-01-25] MEDS: cloNIDine HCL 0.1 MG TABLET PO ×2 (09:00→16:16)
[2023-01-25] MEDS: Nicotine Polacrilex 2 MG GUM 4 MG BUCCAL ×4 (09:36→20:14)
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
[2023-01-25 16:10] VITALS: BP 113/69; PULSE 75
[2023-01-25 19:35] VITALS: BP 128/84; PULSE 91; RESP 16; TEMP 36.6; O2SAT 97
[2023-01-25] MEDS: Melatonin 3 MG TABLET 6 MG PO (20:13)
[2023-01-25] MEDS: cloNIDine HCL 0.2 MG TABLET PO (20:13)
[2023-01-25] MEDS: OLANZapine 10 MG TABLET PO (20:14)
[2023-01-26] MEDS: traZODone HCL 50 MG TABLET PO (01:16)
[2023-01-26 08:56] VITALS: BP 135/69; PULSE 59; RESP 16; TEMP 36.7; O2SAT 96
[2023-01-26] MEDS: OLANZapine 2.5 MG TABLET PO ×2 (08:58→14:42)
[2023-01-26] MEDS: diazePAM 5 MG TABLET PO ×2 (08:58→21:41)
[2023-01-26] MEDS: Nicotine Polacrilex 2 MG GUM 4 MG BUCCAL ×4 (09:31→19:15)
[2023-01-26] MEDS: cloNIDine HCL 0.1 MG TABLET PO ×2 (10:45→16:10)
--- NOTE | 2023-01-26 14:30 | HO.PSYCHPN ---
Subjective Subjective Date of Service: 01/26/23 Reason For Visit: si overdose Interim History: reports anxiety much reduced, sleeping well, no nightmares or panic attacks. agreeable to taper valium in preparation for discharge , when 3-day notice matures. per staff, 3-day up 01/28. not attending groups. much time in room sleeping. anx 4, denies depression. denies SI/HI/AVH. sleeping well. Mental Status Exam Mental Status Exam Narrative: Pt is alert and oriented; behavior is cooperative, calm, friendly; patient is not in distress; dressed in hospital attire with poor hygiene; eye contact fair; Speech is normal rate, volume and prosody and not pressured; no psychomotor agitation/retardation present; thought process is linear and logical; no delusions or paranoia expressed; no SI/HI/AVH expressed. There is no evidence of perceptual disturbance. Patients insight and judgment grossly impaired. Diagnostics Vital Signs (24Hr): Vital Signs - 24 hr 01/25/23 16:10 01/25/23 19:35 01/26/23 08:56 Temperature 97.8 F 98.0 F Pulse Rate 75 91 59 Respiratory Rate 16 16 Blood Pressure 113/69 128/84 135/69 Pulse Oximetry 97 96 Oxygen Delivery Method Room Air BMI result Body Mass Index 18.0 Labs 01/22/23 16:38 01/22/23 16:38 Medications Medications Current Medications Acetaminophen (Acetaminophen 325 Mg Tablet) 650 mg PO Q6H PRN PRN Reason: Headache/Pain Mild Scale (1-3) Al Hydroxide/Mg Hydroxide (Magnesium Hydrox/Alum Hydrox 30 Ml Oral.Susp) 30 ml PO Q6H PRN PRN Reason: Heartburn/Nausea Clonidine HCl (Clonidine Hcl 0.1 Mg Tablet) 0.1 mg PO Q4H PRN; Protocol PRN Reason: anxiety Last Admin: 01/22/23 02:32 Dose: 0.1 mg Clonidine HCl (Clonidine Hcl 0.2 Mg Tablet) 0.2 mg PO BEDTIME JODY; Protocol Last Admin: 01/25/23 20:13 Dose: 0.2 mg Clonidine HCl (Clonidine Hcl 0.1 Mg Tablet) 0.1 mg PO BID@1000,1600 JODY; Protocol Last Admin: 01/26/23 10:45 Dose: 0.1 mg Diazepam (Diazepam 5 Mg Tablet) 5 mg PO BID JODY Last Admin: 01/26/23 08:58 Dose: 5 mg Magnesium Hydroxide (Milk Of Magnesia 30 Ml Oral.Susp) 30 ml PO DAILY PRN PRN Reason: Constipation Last Admin: 01/18/23 09:26 Dose: 30 ml Melatonin (Melatonin 3 Mg Tablet) 6 mg PO BEDTIME [facility] Last Admin: 01/25/23 20:13 Dose: 6 mg Nicotine Polacrilex (Nicotine Polacrilex 2 Mg Gum) 2 mg BUCCAL Q2H PRN PRN Reason: Nicotine Cravings Last Admin: 01/23/23 13:40 Dose: 2 mg Nicotine Polacrilex (Nicotine Polacrilex 2 Mg Gum) 4 mg BUCCAL Q2H PRN PRN Reason: Nicotine Cravings Last Admin: 01/26/23 12:46 Dose: 4 mg Olanzapine (Olanzapine 10 Mg Tablet) 10 mg PO BEDTIME [facility] Last Admin: 01/25/23 20:14 Dose: 10 mg Olanzapine (Olanzapine 5 Mg Tablet) 5 mg PO Q4H PRN PRN Reason: agitation Last Admin: 01/22/23 13:22 Dose: 5 mg Olanzapine (Olanzapine 2.5 Mg Tablet) 2.5 mg PO BID@0900,1500 [facility] Last Admin: 01/26/23 08:58 Dose: 2.5 mg Trazodone HCl (Trazodone Hcl 50 Mg Tablet) 50 mg PO BEDTIME MRX1 PRN PRN Reason: Insomnia Last Admin: 01/26/23 01:16 Dose: 50 mg Allergies Allergies Allergy/AdvReac Type Severity Reaction Status Date / Time No Known Allergies Allergy Unverified 03/22/20 19:37 [No Known Allergies*] Assessment & Plan Assessment & Plan (1) Post-traumatic stress disorder: Status: Acute Code(s): F43.10 - Post-traumatic stress disorder, unspecified (2) MDD (major depressive disorder), recurrent severe, without psychosis: Status: Acute Code(s): F33.2 - Major depressive disorder, recurrent severe without psychotic features Plan Patient is a 22-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 Patient has a urinary Hopkins catheter in place reporting history of trouble urinating since childhood. Patient's mother reports that for the past 3 or 4 days he has remained in his room only, not eating at all, not attending to any ADLs. She reports he talked about suicide and that he had bought a rope in preparation; mother reports that she did in fact find a rope in his room. Patient says he did say he did not feel like in here anymore but never said he was suicidal and denies that he ever bought a rope or that that rope was his. Patient is very focused on the fact that his mother is emotionally reactive and emotionally abusive. He agrees that he was having a hard time but saying that he was talking to his friends online which he found comforting. Patient breaks down in sob, saying he feels rejected and broken; he references past severe bullying in school in addition to what he feels was and emotionally abusive upbringing. Patient however is very open to treatment and medication management. He also agrees that he needs a therapist just wants 1 that is private will not reveal things to his mother. Patient denies any history of manic type episodes or behaviors. Denies other drug use other than cannabis. Impression Patient agrees that he needs help and is eager to see if medication management will be effective; also wants outpatient providers. It is not clear exactly what happened prior to this admission and to what degree patient was dysregulated or suicidal. He remains adamant that he was never actually suicidal and that he did not get a rope that his mother is exaggerating and fabricating. Patient continues to deny any SI at all. He says he thinks he doing well enough and that he can use his friends for support. Patient did come down over course of interview and seemed to be engaged and forthcoming. The remains significant difference is in reporting. For now, Will keep patient on the unit to demonstrate continued safety and appropriate, safe behaviors, as well as medication management; will also gather more collateral. Hospital course: 01/18 patient doing much better with noticeably brighter affect; feels clonidine has helped so much that he is able to interact with others with little anxiety. Agrees to increasing Trileptal since does not want to be on SSRI. Patient did sign in but then later put in a 3 day notice feeling that he will be stable and able to continue treatment as an outpatient; he does however want help getting outpatient providers. Patient remains in good behavioral and impulse control. His plan is to discharge and limit his father's. Plan: 3 day notice Q 15 minute checks Labs ordered for 01/20: Lytes, CBC Continue clonidine 0.1 mg q.h.s. for sleep and as a for p.r.n. for anxiety; helping well Increase Trileptal to 300 mg b.i.d.; for anxiety given adverse reaction to SSRIs which included suicidal ideation Help set up outpatient providers for which patient is eager Continue to gather collateral. Significant history of parent-child discord which might make collateral gathering difficult 01/20: increase HS clonidine to 0.2 mg. schedule clonidine during the day at 1000 and 1600. anxious, nightmares. 01/21: periods of agitation with consuelo delusions. start antipsychotic at HS, taper trileptal as not indicated. T/C evidence-based mood stabilizer. 01/22: pattern continues today. schedule olanzapine TID (2.5/2.5/10). 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 will start valium 5 BID out of caution, despite this not being a usual presentation of benzo withdrawal. 01/23: reports having slept well last night and without nightmares. appears more relaxed this morning, no psychotic content expressed. continue current mgmt through w/e. DC trileptal; trileptal perhaps has been masking benzo withdrawal? 01/24 continue tx. 01/25 continue tx. 01/26: much improved from thursday, no psychosis evident, sleeping well without nightmares or panic attacks. decrease valium 5 BID to 2/5. 3-day notice matures wed, planning to DC then. Reason for continued inpatient stay Substantial Risk for: inability to function and rapid decompensation Time Spent With Patient Time: Total time managing care of this patient today __25__ minutes.
[2023-01-26 21:06] VITALS: BP 138/80; PULSE 92; TEMP 37; O2SAT 96
[2023-01-26] MEDS: cloNIDine HCL 0.2 MG TABLET PO (21:41)
[2023-01-26] MEDS: OLANZapine 10 MG TABLET PO (21:41)
[2023-01-26] MEDS: Melatonin 3 MG TABLET 6 MG PO (21:42)
[2023-01-27 08:00] VITALS: BP 126/69; PULSE 72; RESP 18; TEMP 36.7; O2SAT 98
[2023-01-27] MEDS: Nicotine Polacrilex 2 MG GUM 4 MG BUCCAL ×3 (08:58→21:28)
[2023-01-27] MEDS: diazePAM 2 MG TABLET PO (08:58)
[2023-01-27] MEDS: OLANZapine 2.5 MG TABLET PO ×2 (08:59→14:33)
[2023-01-27] MEDS: cloNIDine HCL 0.1 MG TABLET PO ×2 (09:02→15:02)
--- NOTE | 2023-01-27 11:07 | PM.PSYDC ---
DS: Providers Provider Date of Service: 01/27/23 Date of admission: 01/16/23 13:51 Primary care physician: None Physician DS: Diagnosis Discharge Diagnosis (1) Post-traumatic stress disorder: Status: Acute (2) MDD (major depressive disorder), recurrent severe, without psychosis: Status: Acute DS: Medications Discharge Medications Home Medications: Previous Rx's Medication Instructions Recorded clonidine HCl 0.1 mg tablet 0.1 mg PO BID@1000,1600 30 days 01/27/23 #60 tabs clonidine HCl 0.2 mg tablet 0.2 mg PO BEDTIME 30 days #30 tabs 01/27/23 diazepam 2 mg tablet 5 mg PO BEDTIME 30 days #75 tabs 01/27/23 melatonin 3 mg tablet 6 mg PO BEDTIME 30 days #60 tabs 01/27/23 nicotine (polacrilex) 2 mg gum 4 mg buccal Q2H PRN Nicotine 01/27/23 Cravings 30 days #396 ea olanzapine 10 mg tablet 10 mg PO BEDTIME 30 days #30 tabs 01/27/23 olanzapine 2.5 mg tablet 2.5 mg PO BID@0900,1500 30 days 01/27/23 #60 tabs trazodone 50 mg tablet 50 mg PO BEDTIME MRX1 Insomnia 30 01/27/23 days #60 tabs Mental Status Exam Mental Status Exam Narrative: Pt is alert and oriented; behavior is cooperative, calm, friendly; patient is not in distress; dressed in street attire with fair hygiene; eye contact fair; Speech is normal rate, volume and prosody and not pressured; no psychomotor agitation/retardation present; thought process is linear and logical; no delusions or paranoia expressed; no SI/HI/AVH. There is no evidence of perceptual disturbance. Patients insight and judgment improved. Data Data Completed and Pending Completed studies during hospitalization [Text1]: 01/22/23 01/22/23 16:38 16:38 WBC 6.9 RBC 4.91 Hgb 15.9 Hct 45.6 MCV 92.9 MCH 32.4 MCHC 34.9 RDW 11.3 Plt Count 265 MPV 10.6 Immature Gran % (Auto) 0.3 Neut % (Auto) 70.0 Lymph % (Auto) 18.6 L [place] % (Auto) 10.6 Eos % (Auto) 0.1 Baso % (Auto) 0.4 Lymph # (Auto) 1.3 [place] # (Auto) 0.7 Eos # (Auto) 0.0 Baso # (Auto) 0.0 Abs Immat Gran (auto) 0.02 Absolute Neuts (auto) 4.8 Absolute Nucleated RBC 0.000 Nucleated RBC % (auto) 0.0 Sodium 145 Potassium 4.5 Chloride 105 Carbon Dioxide 31 H Anion Gap 14 BUN 12 Creatinine 0.81 Estim Creat Clear Calc 120.1 Estimated GFR > 60 Random Glucose 90 Calcium 10.0 Total Bilirubin 0.7 AST 25 ALT 38 Alkaline Phosphatase 61 Total Protein 8.1 H Albumin 4.9 DS: Summary Hospital Course Hospital Course: per 01/17 admission note: Patient is a 22-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? Patient has a urinary Hopkins catheter in place reporting history of trouble urinating since childhood. Patient's mother reports that for the past 3 or 4 days he has remained in his room only, not eating at all, not attending to any ADLs.? She reports he talked about suicide and that he had bought a rope in preparation; mother reports that she did in fact find a rope in his room.? Patient says he did say he did not feel like in here anymore but never said he was suicidal and denies that he ever bought a rope or that that rope was his.? Patient is very focused on the fact that his mother is emotionally reactive and emotionally abusive.? He agrees that he was having a hard time but saying that he was talking to his friends online which he found comforting.? Patient breaks down in sob, saying he feels rejected and broken; he references past severe bullying in school in addition to what he feels was and emotionally abusive upbringing.? Patient however is very open to treatment and medication management.? He also agrees that he needs a therapist just wants 1 that is private will not reveal things to his mother.? Patient denies any history of manic type episodes or behaviors.? Denies other drug use other than cannabis. Past Psychiatric History: partial hospitalization 2018 however did not complete History of outpatient therapy however felt his mother intruded upon it and so was not able to be opened November 2022 called his mother from [place] where he was staying saying something traumatic happened and wanted to be picked up; did not disclose Partial hospitalization December 2022 which he said was helpful; was to be started on citalopram but he never took it Patient reports adverse reactions from history of multiple SSRI trials saying he became very suicidal after taking Prozac, Zoloft Medical Evaluation Reviewed: Yes Nursing staff brought to my attention the patient had not urinated in over 9 hours despite drinking adequate fluids.? I ordered a bladder scan which yielded 999 cc of urine within the bladder.? On evaluation the patient reports he has a history of urinary retention and follows with urology.? He reports some suprapubic discomfort and his lower abdomen is distended exam.? I discussed with him the options of straight cath and attempting to urinate afterwards or Hopkins catheter insertion and the patient up for Hopkins catheter insertion.? Will insert Hopkins catheter and send the urine for evaluation. [facility] Medical History?(Updated 01/17/23 @ 09:46 by Augusto No MD) Heart murmur MDD (major depressive disorder), recurrent severe, without psychosis Vocal cord dysfunction Family History: Brother:? Possibly Depression Social History: Dropped out of high school but got his GED Currently lives with his mother Parents are and father is semi involved but it is not clear to what extent Substance History: Excessive cannabis use; denies other use Trauma History: Reports emotional abuse growing up; says there are other traumas he has never told anyone; extensive severe bullying in high school Precis: Patient is a 22-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? Patient has a urinary Hopkins catheter in place reporting history of trouble urinating since childhood. Patient's mother reports that for the past 3 or 4 days he has remained in his room only, not eating at all, not attending to any ADLs.? She reports he talked about suicide and that he had bought a rope in preparation; mother reports that she did in fact find a rope in his room.? Patient says he did say he did not feel like in here anymore but never said he was suicidal and denies that he ever bought a rope or that that rope was his.? Patient is very focused on the fact that his mother is emotionally reactive and emotionally abusive.? He agrees that he was having a hard time but saying that he was talking to his friends online which he found comforting.? Patient breaks down in sob, saying he feels rejected and broken; he references past severe bullying in school in addition to what he feels was and emotionally abusive upbringing.? Patient however is very open to treatment and medication management.? He also agrees that he needs a therapist just wants 1 that is private will not reveal things to his mother.? Patient denies any history of manic type episodes or behaviors.? Denies other drug use other than cannabis. Impression Patient agrees that he needs help and is eager to see if medication management will be effective; also wants outpatient providers.? It is not clear exactly what happened prior to this admission and to what degree patient was dysregulated or suicidal.? He remains adamant that he was never actually suicidal and that he did not get a rope that his mother is exaggerating and fabricating.? Patient continues to deny any SI at all.? He says he thinks he doing well enough and that he can use his friends for support.? Patient did come down over course of interview and seemed to be engaged and forthcoming.? The remains significant difference is in reporting.? For now, Will keep patient on the unit to demonstrate continued safety and appropriate, safe behaviors, as well as medication management; will also gather more collateral. Hospital course: 01/18: patient doing much better with noticeably brighter affect; feels clonidine has helped so much that he is able to interact with others with little anxiety.? Agrees to increasing Trileptal since does not want to be on SSRI.? Patient did sign in but then later put in a 3 day notice feeling that he will be stable and able to continue treatment as an outpatient; he does however want help getting outpatient providers.? Patient remains in good behavioral and impulse control.? His plan is to discharge and limit his father's.? 01/19: Labs ordered for 01/20:? Lytes, CBC. Continue clonidine 0.1 mg q.h.s. for sleep and as a for p.r.n. for anxiety; helping will Increase Trileptal to 300 mg b.i.d.; for anxiety given adverse reaction to SSRIs which included suicidal ideation. Help set up outpatient providers for which patient is eager. Continue to gather collateral.? Significant history of parent-child discord which might make collateral gathering difficult 01/20:? increase HS clonidine to 0.2 mg.? schedule clonidine during the day at 1000 and 1600.? anxious, nightmares. 01/21:? periods of agitation with consuelo delusions.? start antipsychotic at HS, taper trileptal as not indicated.? T/C evidence-based mood stabilizer. 01/22:? pattern continues today.? schedule olanzapine TID (2.5/2.5/10).? 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 will start valium 5 BID out of caution, despite this not being a usual presentation of benzo withdrawal. 01/23:? reports having slept well last night and without nightmares.? appears more relaxed this morning, no psychotic content expressed.? continue current mgmt through w/e.? DC trileptal; trileptal perhaps has been masking benzo withdrawal? 01/24 continue tx. 01/25 continue tx. 01/26: much improved from thursday, no psychosis evident, sleeping well without nightmares or panic attacks.? decrease valium 5 BID to 2/5.? 3-day notice matures , planning to DC then. 01/27: stable presentation, sleeping, lower anxiety, no nightmares or panic attacks. 3-day up tomorrow. meds reviewed, reconciled, prescribed. 01/28: stable presentation. not committable. discharged to outpt care. Time Spent with Patient Time attestation: Total time managing care of this patient today ____ minutes. Time spent: Greater than 30 minutes Discharge Plan Discharge Anticipated Discharge Date/Time: 01/28/23 11:00 Patient Disposition: Home, Self-Care Discharge Diagnosis: PTSD, Chronic Major Depressive Disorder, Recurrent Substance Use Disorder Referrals: [facility] [Provider Group] - 1 Week (May use walk in clinic for immediate medical attention if needed) Discharge Medications: New nicotine (polacrilex) 2 mg Gum 4 mg buccal Q2H PRN (Reason: Nicotine Cravings) 30 Days Qty: 396 0RF clonidine HCl 0.1 mg Tablet 0.1 mg PO BID@1000,1600 30 Days Qty: 60 0RF Protocol: Hold for SBP< HOLD for SBP < : 90 clonidine HCl 0.2 mg Tablet 0.2 mg PO BEDTIME 30 Days Qty: 30 0RF Protocol: Hold for SBP< HOLD for SBP < : 90 diazepam 2 mg Tablet 5 mg PO BEDTIME 30 Days Qty: 75 0RF olanzapine 10 mg Tablet 10 mg PO BEDTIME 30 Days Qty: 30 0RF olanzapine 2.5 mg Tablet 2.5 mg PO BID@0900,1500 30 Days Qty: 60 0RF trazodone 50 mg Tablet 50 mg PO BEDTIME MRX1 30 Days Qty: 60 0RF melatonin 3 mg Tablet 6 mg PO BEDTIME 30 Days Qty: 60 0RF Discontinued citalopram 20 mg tablet 20 mg PO DAILY Discharge Orders: Discharge Order (Routine); Ordered 01/28/23 Ordered By: Yuri Lock Diet: Advance to usual diet Activity on Discharge: As tolerated Stand Alone Forms: Patient Portal Discharge page, Community Support Care Plan Goals: remain safe, sober, and stable in the outpatient treatment setting Health Concerns: none Plan of Treatment: take medications as prescribed, attend appointments as scheduled Assessment: not at imminent risk of harm to self or others Discharge Date/Time: 01/28/23 11:05
[2023-01-27 14:29] VITALS: BP 130/80; PULSE 80; RESP 18; TEMP 36.7; O2SAT 97
[2023-01-27 18:00] VITALS: BP 159/88; PULSE 78; RESP 18; TEMP 36.6; O2SAT 98
[2023-01-27] MEDS: OLANZapine 5 MG TABLET PO (21:23)
[2023-01-27] MEDS: OLANZapine 10 MG TABLET PO (21:23)
[2023-01-27] MEDS: Melatonin 3 MG TABLET 6 MG PO (21:23)
[2023-01-27] MEDS: traZODone HCL 50 MG TABLET PO (21:23)
[2023-01-27] MEDS: cloNIDine HCL 0.2 MG TABLET PO (21:23)
[2023-01-28] MEDS: diazePAM 5 MG TABLET PO (03:11)
[2023-01-28] MEDS: Nicotine Polacrilex 2 MG GUM 4 MG BUCCAL (08:19)
[2023-01-28] MEDS: OLANZapine 2.5 MG TABLET PO (08:24)
[2023-01-28] MEDS: diazePAM 2 MG TABLET PO (08:24)
[2023-01-28 08:33] VITALS: BP 121/69; PULSE 76; RESP 16; TEMP 37; O2SAT 97
[2023-01-28] MEDS: cloNIDine HCL 0.1 MG TABLET PO (10:02)
== END 2023-01-28 11:05 | disposition home or self-care (01) | DRG 751 ==
LOC: HO.ED 15:06 → HO.PADLT16 01-16 13:58
PROVIDERS: Physician Assistant Medical; Psychiatry & Neurology Psychiatry; Admitting Provider Psychiatry & Neurology Psychiatry; Emergency Provider Emergency Medicine Emergency Medical Services; Visit Provider Psychiatry & Neurology Psychiatry
DX: F33.2 Major depressive disorder, recurrent severe without psychotic features (principal); F17.210 Nicotine dependence, cigarettes, uncomplicated; F43.10 Post-traumatic stress disorder, unspecified; R33.9 Retention of urine, unspecified; Z71.6 Tobacco abuse counseling; Z20.822 Contact with and (suspected) exposure to COVID-19; Z79.899 Other long term (current) drug therapy
CPT/HCPCS: 36415; 80048; 80053; 80061; 80143; 80179; 80307; 81003; 82607; 82746; 83036; 84439; 84443; 85025; 87635; 93005; 99285; S9485

== ENCOUNTER → 2023-01-15 14:04 | Outpatient (BNV) | payer BC, SELFPAY | PROVIDERS: Emergency Provider Emergency Medicine Emergency Medical Services; Visit Provider Internal Medicine Cardiovascular Disease | DX: I49.9 Cardiac arrhythmia, unspecified (principal) | CPT/HCPCS: 93010 ==

== ENCOUNTER → 2023-01-16 13:51 | Outpatient (BNV) | payer BC, SELFPAY | PROVIDERS: Admitting Provider Psychiatry & Neurology Psychiatry; Emergency Provider Emergency Medicine Emergency Medical Services; Visit Provider Psychiatry & Neurology Psychiatry | DX: F43.11 Post-traumatic stress disorder, acute (principal); F33.2 Major depressive disorder, recurrent severe without psychotic features | CPT/HCPCS: 90792; 99231; 99232; 99239 ==

== ENCOUNTER 2025-06-11 17:32 | Emergency (ER) | payer OTHER, SELFPAY ==
--- NOTE | ~2025-06-11 | XR_ITS ---
CLINICAL HISTORY: cough, near syncope 2 view chest x-ray. Comparison: None provided Findings: The lungs appear clear. There is no consolidation, effusion, or nodule identified. Cardiomediastinal silhouette is within normal limits. IMPRESSION: No acute cardiopulmonary abnormality. This document has been electronically signed by: Farooq Burch MD on 06/12/2025 01:39:28
[2025-06-11 17:55] VITALS: BP 160/85; PULSE 115; RESP 18; TEMP 36.6; O2SAT 98; BMI 20.3
--- NOTE | 2025-06-11 17:55 | ED_ITS ---
HPI - Headache General Chief Complaint: General Medical Stated Complaint: Shortness of breath dizziness Time Seen by Provider: 06/11/25 22:39 Source: patient Mode of arrival: ambulatory Limitations: no limitations History of Present Illness ED Provider: Dr. Irma Martinez HPI Narrative: 24 year old male with a past history of major depressive disorder and prior polysubstance use (benzodiazepine overdose two years ago, now in sustained remission) who presents with approximately one month of recurrent episodes of severe neck tension that radiates to his head, described as ?shocking sensations? throughout the scalp. The pain is ?unbearable? at times and worsens toward the end of his work shifts, often accompanied by uncontrollable shaking. He reports global weakness, instability of his back and knees, and today experienced a witnessed syncopal episode where ?my knees gave out? and he briefly lost sensation. He also notes feeling cold and clammy even in warm environments, as confirmed by his . OTC analgesics (Tylenol, ibuprofen) have provided no relief; last dose was Motrin given in the ED today, with no earlier analgesics taken today. Additional symptoms/pertinent positives: ? Intermittent nausea en route to ED. ? Occasional expectoration of ?black spikes? (dark sputum). ? Joint hypermobility/?popping,? shoulder shifting, crackling joints (prior consideration for rheumatoid arthritis/lupus, no follow-up due to lack of PCP). ? No current fever, cough, or upper respiratory symptoms. ? Eating and drinking normally. Social/Substance history pertinent to visit: ? Cigarettes from age 17 for ~8 yrs; quit, transitioned to vape, now uses nicotine pouches (3 mg) 4?5/day (~15 mg/day) and actively tapering. ? Alcohol: weekend use only; aware that withdrawal can mimic benzodiazepine withdrawal symptoms. ? Benzodiazepines: last use two years ago (overdose event). ? Cannabis: historical use; current use status not clarified during visit. ? 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 Related Data Previous Rx's ?Medication ?Instructions ?Recorded clonidine HCl 0.1 mg tablet 0.1 mg PO BID@1000,1600 30 days 01/27/23 #60 tabs clonidine HCl 0.2 mg tablet 0.2 mg PO BEDTIME 30 days #30 tabs 01/27/23 diazepam 2 mg tablet 5 mg (2.5 x 2 mg) PO BEDTIME 30 01/27/23 days #75 tabs melatonin 3 mg tablet 6 mg (2 x 3 mg) PO BEDTIME 3 0 days 01/27/23 #60 tabs nicotine (polacrilex) 2 mg gum 4 mg buccal Q2H PRN Mikey otine 01/27/23 Cravings 30 days #396 ea olanzapine 10 mg tablet 10 mg PO BEDTIME 30 days #30 tabs 01/27/23 olanzapine 2.5 mg tablet 2.5 mg PO BID@0900,1500 30 d ays 01/27/23 #60 tabs trazodone 50 mg tablet 50 mg PO BEDTIME MRX1 Insomn ia 30 01/27/23 days #60 tabs methocarbamol 500 mg tablet 1,000 mg (2 x 500 mg) PO Q ID #20 06/12/25 tabs Allergies Allergy/AdvReac Type Severity Reaction Status Date / Time No Known Allergies (No Known Allergy Verified 06/11/25 17:58 Allergies*) Review of Systems 2 Review of Systems: as per HPI, full review of systems performed and negative but for the above mentioned pertinent positives and negatives. [facility] Past Medical History Medical History MDD (major depressive disorder), recurrent severe, without psychosis Vocal cord dysfunction Heart murmur Social History Social History Household Members: Family Household Members Other:: mother, step father, sibling Housing: House Do you presently have visiting nurse or other home services: No Alcohol intake: never Patient Tobacco Use Status: Current everyday Tobacco user Tobacco use type: Smokeless Tobacco Smoked in Last 30 Days: Yes e-Cigarette/Vaping Use: Currently Using Second Hand Smoke Exposure: Yes Use of substances other than those prescribed or required for medical reasons: Yes Substance Use Type: Marijuana Advance Directives: No Advance Directives Information Provided: Yes Do you have a plan to hurt others: No Plan service: No Sexual orientation: Don't Know Physical Exam 2 Exam: Exam: GENERAL: Well-Appearing, conversant, no acute distress. SKIN: Normal skin color for ethnicity, warm, dry, no rashes noted. HEENT:? Normocephalic, atraumatic, no stridor, posterior oropharynx nonerythematous, dentition intact, EOMI. NECK: Soft, supple, full ROM, midline structures nontender, no step-offs, no deformities, no lymphadenopathy. CHEST: Heart regular rate and rhythm, no murmurs, symmetric chest rise and fall. PULMONARY: Clear to auscultation bilaterally, no labored breathing, no wheezes/rhales/rhonchi. ABDOMINAL: Soft, nondistended, nontender, positive bowel sounds in all quadrants. : Deferred. MUSCULOSKELETAL: Normal tone, full range of motion, no deformities, no peripheral edema. NEURO: Alert and oriented x3, CN II through XII intact, equal strength and sensation bilateral upper and lower extremities, no focal neurologic deficits.? PSYCHIATRIC: Normal affect, fluid speech, good eye contact and appropriate demeanor. Vital Signs: Vital Signs: Last Vital Signs Temp 98.1 F 06/11/25 22:15 Pulse 73 06/11/25 22:15 Resp 18 06/11/25 22:15 BP 129/81 06/11/25 22:15 Pulse Ox 98 06/11/25 22:15 O2 Del Method Room Air 06/11/25 22:15 BMI result Body Mass Index 20.3 Course Course Course Narrative: This is a Rapid Medical Exam performed in triage by Layne Downs PA-C. Full HPI, ROS and PE to be performed by primary ED provider. 24yo M w/pmhx MDD, PTSD, substance use presenting to the ED c/o headache, SOB and ?syncope vs near syncopal episode today. Admits sx have been happening x few months. Also reports shakiness PE: NAD, nontoxic appearing, ambulating with steady gait Plan: EKG, labs, UA, SARs Medications Administered Discontinued Medications Generic Name Dose Route Start Last Admin Trade Name Freq PRN Reason Stop Dose Admin Ibuprofen 600 mg 06/11/25 23:13 06/11/25 23:16 Ibuprofen 600 Mg Tablet PO 06/11/25 23:14 600 mg ONCE ONE Administration Methocarbamol 500 mg 06/11/25 23:43 06/11/25 23:53 Methocarbamol 500 Mg Tablet PO 06/11/25 23:44 500 mg ONCE ONE Administration Medical Decision Making Medical Decision Making MDM Narrative: 24 year old male with neck muscle spasms/headache, episode of syncope, and generalized weakness. Objective work-up (labs, EKG) reassuring. Differential discussed includes electrolyte abnormalities, hypoglycemia, substance withdrawal?related muscle tension, and less likely neurologic or rheumatologic etiologies. Problem #1: Cervical muscle spasm with tension headache Assessment: One-month history of severe neck tension with radiation to head and associated ?shocking? sensations; mild cervical paraspinal spasm on exam; inadequate relief with OTC analgesics. Plan: * Initiate trial of methocarbamol in ED; if effective, provide prescription on discharge. * Continue OTC analgesics as needed. * Return precautions: severe headache with stiff neck and fever (concern for meningitis) or worsening neurological deficits. Problem #2: Episode of syncope / generalized weakness Assessment: Single witnessed syncopal event with transient knee buckling and global weakness; normal vitals and labs; likely multifactorial (possible orthostasis, hydration/nutritional deficits). Plan: * Encouraged small, frequent meals to maintain blood glucose. * Maintain adequate hydration. * If recurrent syncope, progressive weakness, or inability to ambulate develops, return to ED. Problem #3: Nicotine dependence Assessment: Former heavy smoker; now using nicotine pouches (~15 mg/day) and actively reducing use. Plan: * Counseled on complete nicotine cessation to reduce vasoconstriction and improve vascular health. * Patient will continue tapering nicotine pouches. Problem #4: Substance use history (benzodiazepines, alcohol) Assessment: History of benzodiazepine overdose two years ago; no current use. Weekend alcohol consumption may contribute to intermittent withdrawal-related muscle tension. Plan: * Counseled on minimizing/avoiding alcohol to prevent withdrawal-related symptoms. * Provided education on similarity between alcohol and benzodiazepine withdrawal effects. Problem #5: Dark sputum/cough, tobacco exposure Assessment: Reports ?black? sputum; remote heavy smoking history with current nicotine pouch use. Lungs clear on exam; need to rule out pulmonary pathology. Plan: * Chest X-ray ordered; will review results prior to disposition. * Return if worsening cough, hemoptysis, shortness of breath, fevers, or chest pain. Disposition: Pending chest X-ray results. If imaging unremarkable and symptoms improved with muscle relaxant, patient may be discharged with methocarbamol prescription, education on symptomatic care, and strict return precautions as above. Differential Diagnosis Differential Diagnoses: The differential diagnosis associated with the presentation includes (as above) Admission/Observation Consideration of admission/observation: Escalation of care including admission/observation considered Lab Data MDM Lab Attestation statement: I reviewed the patient's lab results. 06/11/25 18:07 06/11/25 18:06 Labs: Lab Results 06/11/25 06/11/25 Range/Units 18:06 18:07 WBC 5.6 (4.8-10.8) X10*3/uL RBC 4.89 (4.60-5.80) X10*6/uL Hgb 15.6 (14.0-18.0) g/dl Hct 43.9 (42.0-52.0) % MCV 89.8 (80.0-98.0) fL MCH 31.9 (27.0-33.0) pg MCHC 35.5 (31.0-36.0) g/dl RDW 11.4 (11.0-16.0) % Plt Count 268 (160-400) X10*3/uL MPV 10.0 (9.4-12.4) fL Immature Gran % (Auto) 0.2 (0.0-0.4) % Neut % (Auto) 56.4 (45-73) % Lymph % (Auto) 33.0 (20-40) % Oliver % (Auto) 8.6 (2-11) % Eos % (Auto) 1.1 (0-4) % Baso % (Auto) 0.7 (0-2) % Lymph # (Auto) 1.8 (1.2-4.9) X10*3/uL Oliver # (Auto) 0.5 (0.1-1.2) X10*3/uL Eos # (Auto) 0.1 (0.0-0.4) X10*3/uL Baso # (Auto) 0.0 (0.0-0.2) X10*3/uL Abs Immat Gran (auto) 0.01 (0.00-0.03) X10*3/uL Absolute Neuts (auto) 3.2 (2.0-8.3) x10*3/uL Absolute Nucleated RBC 0.000 (0.0-0.012) X10*3/uL Nucleated RBC % (auto) 0.0 (0.0-0.2) /100WBC Sodium 143 (135-145) mmol/L Potassium 4.1 (3.3-5.1) mmol/L Chloride 105 (96-108) mmol/L Carbon Dioxide 28 (22-29) mmol/L Anion Gap 14 (12-20) BUN 9 (9-16) mg/dL Creatinine 0.77 (0.5-1.4) mg/dL Estim Creat Clear Calc 144.8 Estimated GFR > 60 Random Glucose 96 (60-115) mg/dL Calcium 10.0 (8.4-10.2) mg/dL Magnesium 2.0 (1.6-2.6) mg/dL Total Bilirubin 1.2 H (0.0-1.0) mg/dL Direct Bilirubin 0.4 (0.0-0.5) mg/dL AST 26 (5-37) U/L ALT 23 (0-40) U/L Alkaline Phosphatase 56 (39-117) U/L Total Protein 8.1 H (6.5-8.0) g/dL Albumin 5.5 H (3.5-5.0) g/dL TSH 2.11 (0.32-4.0) uIU/mL Influenza Type A (PCR) NEGATIVE (Negative) Influenza Type B (PCR) NEGATIVE (Negative) RSV RNA Qual (PCR) NEGATIVE (Negative) SARS-CoV-2 RNA (RT-PCR) NEGATIVE (Negative) Independent Interpretation I performed an independent interpretation of an: EKG and Plain X-Ray Interpretation: My independent interpretation of the chest x-ray reveals no consolidations, pulmonary edema, pleural effusion, pneumothorax, obvious bony abnormalities. My independent interpretation of the ECG reveals normal sinus rhythm with rate of 106, normal axis, normal intervals, no ST elevations or depressions to suggest ischemic changes, relatively unchanged from previous on 01/15/23. Radiology Impression Discussion of test interpretation with radiology: I have reviewed the radiologist's reading. Independent Historian Clinical information obtained from an independent historian. History obtained from or confirmed by: Spouse External Record Review External record reviewed: Inpatient record Prescription Management I considered prescription management with: Pain Medication Chronic Conditions Patient?s care impacted by: Other (MDD, former substance use history) Social Determinants Patient?s care significantly limited by Social Determinants of Health including: Other Social Determinant of Health Discharge Plan Discharge Clinical Impression: Near syncope, Generalized muscle weakness, Cervicalgia of foncfxqv-qbsosnc-iutot region Patient Disposition: Home, Self-Care Instructions: Weakness (ED), Near Syncope (ED) Additional Instructions: DIAGNOSIS & TREATMENT: You were seen in the Emergency Department for your weakness and passing out. We performed an EKG, laboratory work and chest xray which did not reveal any acute abnormalities that would explain your symptoms. FURTHER CARE: We have not found any emergent physical exam or lab abnormalities that would require admission to the hospital today. Many people who come to the ER with these symptoms do not leave with a specific diagnosis at the end of their visit. In the Emergency Department we try to make sure that there is no emergent problem that needs admission to the hospital or antibiotics right now. This does not mean that your evaluation is complete--please be sure to follow up with your regular doctor as additional testing as an outpatient may be indicated. Please be certain to drink plenty of fluids over the next several days. WHEN YOU SHOULD BE SEEN NEXT: Please follow-up with your primary care provider within the next 2-3 days for reevaluation of your symptoms. WHEN TO RETURN TO THE ED: Monitor your symptoms closely and return to the emergency department immediately for any new/worsening symptoms including: Worsening chest pain, difficulty breathing, fevers greater than 100 degrees, passing out, any new symptom that concerns you. Call 911 with any medical emergency. Prescriptions: New methocarbamol 500 mg tablet 1,000 mg PO QID Qty: 20 0RF No Action nicotine (polacrilex) 2 mg Gum 4 mg buccal Q2H PRN (Reason: Nicotine Cravings) 30 Days Qty: 396 0RF clonidine HCl 0.1 mg Tablet 0.1 mg PO BID@1000,1600 30 Days Qty: 60 0RF Protocol: Hold for SBP< HOLD for SBP < : 90 clonidine HCl 0.2 mg Tablet 0.2 mg PO BEDTIME 30 Days Qty: 30 0RF Protocol: Hold for SBP< HOLD for SBP < : 90 diazepam 2 mg Tablet 5 mg PO BEDTIME 30 Days Qty: 75 0RF olanzapine 10 mg Tablet 10 mg PO BEDTIME 30 Days Qty: 30 0RF olanzapine 2.5 mg Tablet 2.5 mg PO BID@0900,1500 30 Days Qty: 60 0RF trazodone 50 mg Tablet 50 mg PO BEDTIME MRX1 30 Days Qty: 60 0RF melatonin 3 mg Tablet 6 mg PO BEDTIME 30 Days Qty: 60 0RF Print Language: Japanese
--- NOTE | 2025-06-11 17:57 | ECG_ITS ---
Test Reason : CHEST PAIN Blood Pressure : */* mmHG Vent. Rate : 106 BPM Atrial Rate : 106 BPM P-R Int : 120 ms QRS Dur : 74 ms QT Int : 306 ms P-R-T Axes : 86 61 56 degrees QTcB Int : 406 ms Sinus tachycardia Otherwise normal ECG When compared with ECG of 15-Jan-2023 14:20, Vent. rate has increased by 48 bpm Referred By: Layne Downs Electronically Signed By: JANIE MCCLELLAN MD
[2025-06-11 18:13] LABS: MANUAL DIFF FLAG NO
[2025-06-11 18:15] LABS: Hematocrit 43.9 % (42.0-52.0); Hemoglobin 15.6 g/dl (14.0-18.0); Imm Gran Abs Auto 0.01 X10*3/uL (0.00-0.03); Imm Gran Pct Auto 0.2 % (0.0-0.4); Lymphocytes Absolute Auto 1.8 X10*3/uL (1.2-4.9); Mean Corpuscular HGB Conc 35.5 g/dl (31.0-36.0); Mean Corpuscular Hemoglobin 31.9 pg (27.0-33.0); Mean Corpuscular Volume 89.8 fL (80.0-98.0); NRBC Abs Auto 0.000 X10*3/uL (0.0-0.012); NRBC Pct Auto 0.0 /100WBC (0.0-0.2); Platelet Count 268 X10*3/uL (160-400); Red Blood Count 4.89 X10*6/uL (4.60-5.80); White Blood Count 5.6 X10*3/uL (4.8-10.8)
[2025-06-11 18:26] LABS: Alanine Aminotransferase 23 U/L (0-40); Albumin Level 5.5 g/dL (3.5-5.0); Alkaline Phosphatase 56 U/L (39-117); Anion Gap 14 (12-20); Aspartate Amino Transferase 26 U/L (5-37); Blood Urea Nitrogen 9 mg/dL (9-16); Calcium 10.0 mg/dL (8.4-10.2); Carbon Dioxide 28 mmol/L (22-29); Chloride 105 mmol/L (96-108); Creatinine Clr Calc Pharmacy 144.8; Estimated Glomerular Filt Rate > 60; Magnesium 2.0 mg/dL (1.6-2.6); Potassium 4.1 mmol/L (3.3-5.1); Sodium 143 mmol/L (135-145); Total Protein 8.1 g/dL (6.5-8.0)
[2025-06-11 18:52] LABS: Resp Syncy Virus RNA Qual PCR NEGATIVE (Negative); SARS COV2 PCR INHOUSE NEGATIVE (Negative)
--- OUTSIDE RECORDS SUMMARY | 2025-06-11 21:00 | XMS_ITS | Clinical Summary ---
Author Organization [facility] Address [address] [place] [address] Phone Care Team Providers Care Chemistry Quality Control Technician Name Role Phone Eddi Arango MD Primary Care Provider Eddi Guerra MD Unavailable Unavailable Medications albuterol (ProAir RespiClick) 90 mcg/act breath-activate d inhaler Dose Amount: 2 puff, INH, Q4hr, Dispense Quantity: 1 EA, Refills: 2, Entered: 10/05/20 12:37:00 EDT, [id number] 10/05/2020 Active amitriptyline (Elavil) 10 mg tablet Dose: 10 mg, Dose Amount: 1 tab, PO, daily, Special Instructions: Take at night, Dispense Quantity: 30 tab, Refills: 4, Entered: 09/20/20 10:13:00 EDT, [id number] 09/20/2020 Active Social History Tobacco Use Types Packs/Day Years Used Date Smoking Tobacco: Never Assessed Sex and Gender Information Value Date Recorded Sex Assigned at Not on file Legal Sex Male 3:46 AM EDT Gender Identity Not on file Sexual Orientation Not on file Last Filed Vital Signs Vital Sign Reading Time Taken Comments Blood Pressure 131/61 09/20/2020 8:16 AM EDT Pulse 69 09/20/2020 8:16 AM EDT Temperature 36.9 C (98.4 F) 09/20/2020 8:16 AM EDT Respiratory Rate - - Oxygen Saturation - - Inhaled Oxygen Concentration - - Weight 69.1 kg (152 lb 5.4 oz) 09/20/2020 8:16 A M EDT Height 180.5 cm (5' 11.06 ) 09/20/2020 8:16 AM E DT Body Mass Index 21.21 09/20/2020 8:16 AM EDT Plan of Treatment Not on file Care Teams Chemistry Quality Control Technician Relationship Specialty Start Date End Date Eddi Arango MD PCP - General 07/20/20 Eddi Arango MD PCP - Clinical PCP 07/20/20
--- OUTSIDE RECORDS SUMMARY | 2025-06-11 21:00 | XMS_ITS | Encounter Summary ---
Author Organization [facility] Address [address] [place] [address] Phone Care Team Providers Care [employer] Advisor Name Role Phone Viviana Quarles MD Primary Care Provider [phone] Encounter Details Date Type Department Care Team (Late st Contact Info) Description 05/25/2013 Nurse Only [address] [place] [address] Social History Tobacco Use Types Packs/Day Years Used Date Smoking Tobacco: Never Assessed Sex and Gender Information Value Date Recorded Sex Assigned at Not on file Legal Sex Male 4:08 PM EST Gender Identity Not on file Sexual Orientation Not on file documented as of this encounter Nursing Notes * UNKNOWN, HISTORICAL - 05/25/2013 4:46 PM EST Tez Keyes. 2000 NURSE NOTE/VERBAL ORDERS Office/Outpatient Visit Visit Date: May 25, 2013 04:46 pm Provider: Nimisha Chu RN (Rooter Operator: Zita Becerra MD; User Support Analyst Supervisor: Nimisha Chu RN) Location: [facility]. ECTIVE: CC: He is here for the Flu Clinic. HPI: No known chronic health conditions. Fever or illness is not present today. No trouble breathing or hives after eating eggs He has not had a reaction to the flu vaccine or other immunization. Flu vaccine VIS was given today.(interim 01/28/13) There were no questions or concerns voiced at today's visit. OBJECTIVE: Exams: GENERAL APPEARANCE: Alert, active, looks well, mood appropriate ASSESSMENT: V04.81 Flu Clinic ORDERS: Procedures Ordered: Immunization administration by intranasal or oral route; one vaccine (single or combination) (In-House) Other Orders: Influenza virus vac quadrivalent live intranasal (In-House) PLAN: Flu Clinic Influenza intranasal vaccine given No contraindications noted for flu vaccines. Tolerated well, left office in good condition. Orders: Influenza virus vac quadrivalent live intranasal (In-House) Immunization administration by intranasal or oral route; one vaccine (single or combination) (In-House) Patient Recommendations: For Flu Clinic: Influenza (Given) CHARGE CAPTURE: Primary Diagnosis: V04.81 Flu Clinic Orders: [id number] Influenza virus vac quadrivalent live intranasal (In-House) [id number] Immunization administration by intranasal or oral route; one vaccine (single or combination) (In-House) documented in this encounter Plan of Treatment Not on file documented as of this encounter Visit Diagnoses Not on filedocumented in this encounter Care Teams [employer] Advisor Relationship Specialty Start Date End Date Viviana Quarles MD [address] [place] [id number] PCP - General Pediatrics 07/15/22 02/11/23 documented as of this encounter
--- OUTSIDE RECORDS SUMMARY | 2025-06-11 21:00 | XMS_ITS | Encounter Summary ---
Author Organization [facility] Address [address] [place] [address] Phone Care Team Providers Care Financial Services Representative Name Role Phone Viviana Quarles MD Primary Care Provider [phone] Encounter Details Date Type Department Care Team (Late st Contact Info) Description 07/19/2012 Nurse Only [address] [place] [address] Social History Tobacco Use Types Packs/Day Years Used Date Smoking Tobacco: Never Assessed Sex and Gender Information Value Date Recorded Sex Assigned at Not on file Legal Sex Male 4:08 PM EST Gender Identity Not on file Sexual Orientation Not on file documented as of this encounter Nursing Notes * UNKNOWN, HISTORICAL - 07/19/2012 4:47 PM EST Tez Keyes. 2000 NURSE NOTE/VERBAL ORDERS Office/Outpatient Visit Visit Date: Jul 19, 2012 04:47 pm Provider: Jordyn Junior LPN (Med Specialist: Zita Becerra MD) Location: [facility]. ECTIVE: CC: He is here for the Flu Clinic. HPI: No known chronic health conditions. Fever or illness is not present today. No trouble breathing or hives after eating eggs He has not had a reaction to the flu vaccine or other immunization. Flu vaccine VIS was given today.(interim 01/05/12) There were no questions or concerns voiced at today's visit. PMH/FMH/SH: Past Medical History: Attention Deficit Disorder: dx'd in 6/12; Neck mass/ lymphadenopathy. 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 ( [employer]; 4th grade ) Fall 2011 Hobbies and recreational interests include sports ( soccer, street hockey ) and gardening. 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 Current Medications: Last Reviewed on 01/09/2012 3:06:08 PM by Marissa Denton None OBJECTIVE: Exams: GENERAL APPEARANCE: Alert, active, looks well, mood appropriate ASSESSMENT: V04.81 Flu Clinic ORDERS: Procedures Ordered: Influenza virus vaccine, split virus, preservative free, > 3 years, for intramuscular use (In-House) Immunization administration (includes percutaneous, intradermal, subcutaneous or intramuscular injec (In-House) PLAN: Flu Clinic Influenza vaccine > 3 yr (Preservative Free) given No contraindications noted for flu vaccines. Tolerated well, left office in good condition. Orders: Influenza virus vaccine, split virus, preservative free, > 3 years, for intramuscular use (In-House) Immunization administration (includes percutaneous, intradermal, subcutaneous or intramuscular injec (In-House) CHARGE CAPTURE: Primary Diagnosis: V04.81 Flu Clinic Orders: [id number] Influenza virus vaccine, split virus, preservative free, > 3 years, for intramuscular use (In-House) [id number] Immunization administration (includes percutaneous, intradermal, subcutaneous or intramuscular injec (In-House) documented in this encounter Plan of Treatment Not on file documented as of this encounter Visit Diagnoses Not on filedocumented in this encounter Care Teams Financial Services Representative Relationship Specialty Start Date End Date Viviana Quarles MD [address] [place] [id number] PCP - General Pediatrics 07/15/22 02/11/23 documented as of this encounter
--- OUTSIDE RECORDS SUMMARY | 2025-06-11 21:00 | XMS_ITS | Clinical Summary ---
Author Organization [facility] Address [address] [place] [phone] Phone Care Team Providers Care [employer] Exchange Administrator Name Role Phone Unavailable Primary Care Provider Unavailabl e Allergies No known active allergies Medications LORazepam 0.5 MG tablet TAKE 1 TABLET BY MOUTH EVERY 6 HOURS NEEDED FOR ANXIETY 0 06/23/2019 Active Active Problems Problem Noted Date Diagnosed Date Right hand pain 09/06/2021 Overview (09/11/2021): History of right hand pain since yesterday--no direct injury--but Will felt a pop and noted pain of ring finger at MCP joint and several other areas of pain. Exam is unremarkable. No specific tenderness. No swelling nor limitation of movement. He is wearing a wrist splint. Etiology unclear, but exam is reassuring. Seen by [facility] Ortho; diagnosed with hand sprain . Supportive care recommended. Assessment & Plan (09/06/2021 4:10 PM EST): History of right hand pain since yesterday--no direct injury--but Will felt a pop and noted pain of ring finger at MCP joint and several other areas of pain. Exam is unremarkable. No specific tenderness. No swelling nor limitation of movement. He is wearing a wrist splint. Etiology unclear, but exam is reassuring. Follow clinically--may need further assessment if not improved in 5-7 days. Vocal cord dysfunction 08/01/2021 Overview (08/01/2021): Diagnosis per ENT, but no records in chart. Will request consult notes. Assessment & Plan (08/01/2021 11:12 AM EST): Diagnosis per ENT, but no records in chart. Will request consult notes. Heart murmur 08/01/2021 Overview (08/01/2021): Per ENT; no records in chart. No prior history of this finding. Will request consult notes for my review. Note: seen by Cardiology for chest pain--no report of murmur. Assessment & Plan (08/01/2021 11:13 AM EST): Per ENT; no records in chart. No prior history of this finding. Will request consult notes for my review. Skin cyst 08/01/2021 Overview (09/06/2021): PMH skin mass/ cyst under the left eye ( see OV from Dr Becerra). Mass is now bothersome; may be slightly larger, but not red nor tender. Will also reports a similar mass on the posterior left neck. Mobile. Firm. Non tender. Suspect epithelial inclusion cyst on face. Lesion of neck may be another cyst or a reactive lymph node. Will refer to derm for opinion and treatment if indicated ( although plastic surgery may be preferred for excision)( referral not pursued) Assessment & Plan (09/06/2021 4:05 PM EST): PMH skin mass/ cyst under the left eye ( see OV from Dr Becerra). Mass is now bothersome; may be slightly larger, but not red nor tender. Will also reports a similar mass on the posterior left neck. Mobile. Firm. Non tender. Suspect epithelial inclusion cyst on face. Lesion of neck may be another cyst or a reactive lymph node. Will refer to derm for opinion and treatment if indicated ( although plastic surgery may be preferred for excision)( referral not pursued) Referral remains an option. Assessment & Plan (08/01/2021 11:17 AM EST): PMH skin mass/ cyst under the left eye ( see OV from Dr Becerra). Mass is now bothersome; may be slightly larger, but not red nor tender. Will also reports a similar mass behind the left ear. Mobile. Firm. Non tender. Suspect epithelial inclusion cyst on face. Lesion behind ear may be another cyst or a reactive lymph node. Will refer to derm for opinion and treatment if indicated ( although plastic surgery may be preferred for excision) Follow clinically. Continue present management. History of COVID-19 07/29/2021 Overview (08/01/2021): Tested positive with home covid test - 07/26/21--mild symptoms at the time ( runny and stingy nose, fatigue, headache)--which resolved in a few days. No cough nor breathing difficulties. No fever ( TMax 100). No loss of taste nor smell. Repeat covid test on 07/31 remains positive. Discussed. Continue to wear a mask around others for 5 more days. Assessment & Plan (08/01/2021 11:11 AM EST): Tested positive with home covid test - 07/26/21--mild symptoms at the time ( runny and stingy nose, fatigue, headache)--which resolved in a few days. No cough nor breathing difficulties. No fever ( TMax 100). No loss of taste nor smell. Repeat covid test on 07/31 remains positive. Discussed. Continue to wear a mask around others for 5 more days. 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 See consult from [facility] Pulmonology--history is consistent with EVALI-- now improved ( no longer vaping/ smoking) If symptoms noted with exercise, would treat for bronchospasm with albuterol HFA. Bruising 03/03/2020 Overview (07/16/2020): History of unusual bruising reported by family--mostly involving lower legs--no other bleeding nor joint swelling. Several bruises seen on right knee and shins--all are yellow and indistinct they are not enlarging and no new bruises are seen. Exact cause of trauma not found, but no evidence of abnormal bruising nor bleeding. Discussed. May reflect a familial pattern of easy bruising --but no evidence of significant abnormality. Assessment & Plan (07/16/2020 6:41 PM EST): History of unusual bruising reported by family--mostly involving lower legs--no other bleeding nor joint swelling. Several bruises seen on right knee and shins--all are yellow and indistinct they are not enlarging and no new bruises are seen. Exact cause of trauma not found, but no evidence of abnormal bruising nor bleeding. Discussed. May reflect a familial pattern of easy bruising --but no evidence of significant abnormality. Follow clinically. Continue present management. Assessment & Plan (03/07/2020 5:09 PM EDT): History of unusual bruising since yesterday--mostly involving lower legs, but some bruising of the thigh and UE. Possible trauma due to exercising ( push ups)--no other bleeding nor joint swelling. Several bruises seen on right anterior thigh and left dhillon--all are yellow and indistinct they are not enlarging and no new bruises are seen. Exact cause of trauma not found, but no evidence of abnormal bruising nor bleeding. Follow clinically. Assessment & Plan (03/03/2020 2:29 PM EDT): History of unusual bruising since yesterday--mostly involving lower legs, but some bruising of the thigh and UE. Possible trauma due to exercising ( push ups)--no other bleeding nor joint swelling. Family is sending photos for my review. If unexplained new bruises or extension of current bruises noted--may need assessment this weekend, otherwise may follow clinically and recheck at planned OV on Thursday Weight loss 03/03/2020 Overview (09/06/2021): Previous history of weight loss ( see growth chart)--mother now reports ongoing weight loss since July. Weight today is 137 lbs which is 17 lbs less than the previous visit. No history of caloric losses ( no diarrhea, polyuria nor vomiting). Weight not discussed at today's visit for hand pain. Scheduled for well visit in 3 weeks. Assessment & Plan (09/06/2021 4:08 PM EST): Previous history of weight loss ( see growth chart)--mother now reports ongoing weight loss since July. Weight today is 137 lbs which is 17 lbs less than the previous visit. No history of caloric losses ( no diarrhea, polyuria nor vomiting). Weight not discussed at today's visit for hand pain. Assessment & Plan (03/07/2020 5:14 PM EDT): Previous history of weight loss ( see growth chart)--mother now reports ongoing weight loss since July. Weight today is stable ( actually slightly improved since last winter) Reassurance given. Follow clinically. Continue present management. Assessment & Plan (03/03/2020 2:30 PM EDT): Previous history of weight loss ( see growth chart)--mother now reports ongoing weight loss since July. I will plan to see Will in the office on 03/07 to document VS and discuss. Substance abuse 12/14/2019 Overview (12/14/2019): Recent concerns noted about substance abuse--Will has been using synthetic cannabinoids ( Gorilla Glue Spice K2 )--which have been purchased on line. This issue surfaced when he became more anxious and depressed in the last few weeks ( exacerbated by quarantine); he admits to self treatment Since starting these products he seems more aggressive and irritable He punched a wall the other night. Currently involved with Dr Falcon for therapy and Dr German for psychiatry. Investigation underway regarding resources. Assessment & Plan (12/14/2019 4:50 PM EDT): Recent concerns noted about substance abuse--Will has been using synthetic cannabinoids ( Gorilla Glue Spice K2 )--which have been purchased on line. This issue surfaced when he became more anxious and depressed in the last few weeks ( exacerbated by quarantine); he admits to self treatment Since starting these products he seems more aggressive and irritable He punched a wall the other night. Currently involved with Dr Falcon for therapy and Dr German for psychiatry. Investigation underway regarding resources. Discussed options. Stay in contact with MH providers. Consider referral to Dr Workman ( who has special interest in substance abuse). May consider negotiation--could try CBD oil or cannabis ( which is safer than synthetics)--despite being illegal. Oral lesion 11/04/2019 Overview (11/04/2019): Gus has noted a mouth lesion of the mid palate--it is small, firm and white topped. It was noted by ENT and is being followed by them. Assessment & Plan (11/04/2019 7:54 AM EDT): Gus has noted a mouth lesion of the mid palate--it is small, firm and white topped. It was noted by ENT and is being followed by them. Follow clinically. Continue present management. Await re-assessment by ENT Other chest pain 11/02/2019 Overview (11/18/2019): Gus reports frequent episodes of chest pain which may relate to a prolonged illness several months ago ( family questions whether this was COVID 19, although it occurred prior to any known cases in [place]). Chest pain may also reflect anxiety. Gus has been seen by Cardiology ( Dr Healy)-- he feels that the pain is benign musculoskeletal pain augmented by anxiety--he will obtain a Holter Monitor test for confirmation Assessment & Plan (03/03/2020 1:49 PM EDT): Gus has been seen by Cardiology ( Dr Healy)-- he feels that the chest pain is benign musculoskeletal pain augmented by anxiety--he will obtain a Holter Monitor test for confirmation Assessment & Plan (11/02/2019 5:57 PM EDT): Will reports frequent episodes of chest pain which may relate to a prolonged illness several months ago ( family questions whether this was COVID 19, although it occurred prior to any known cases in [place]). Chest pain may also reflect anxiety. Gus has an appointment with Cardiology next week ( Dr Healy) I will send lab work from earlier visits as per family request. Amplified musculoskeletal pain syndrome 06/30/20 19 Overview (10/01/2020): History of multiple joint complaints with cracking and pain. No swelling nor redness. Also reports significant fatigue. Both large and small joints involved ( including fingers and neck). Under treatment for anxiety and depression which may explain some of the somatic complaints. Lab work was obtained 07/2019 and was unremarkable except for YESICA which showed a homogenous pattern which was positive at 1:80 ( low) Further studies ordered to rule out SLE, all of which are WNL except for a low titer for anti-dsDNA ( positive at 1:10)( spoke with [facility] Rheumatology--overall testing is reassuring--anti-dsDNA is not considered significant) Pain is waxing and waning by history. No redness nor swelling. Can be tender to touch. Often notes cracking of joints as well as abnormal posturing. Seen by Rheumatology ( Dr Almanza of [facility])--diagnosed with amplified pain syndrome-- PT and therapy are primary treatment modalities--additional testing ordered. Family remains concerned due to lack of improvement and uncertain diagnosis ( family questions role of covid 19--never diagnosed--but prolonged suspicious illness last July). Discussed second opinion with [facility] or [facility] ( will explore options)--see consult note--amplified musculoskeletal pain syndrome confirmed. Assessment & Plan (07/16/2020 6:45 PM EST): History of multiple joint complaints with cracking and pain. No swelling nor redness. Also reports significant fatigue. Both large and small joints involved ( including fingers and neck). Under treatment for anxiety and depression which may explain some of the somatic complaints. Lab work was obtained 07/2019 and was unremarkable except for YESICA which showed a homogenous pattern which was positive at 1:80 ( low) Further studies ordered to rule out SLE, all of which are WNL except for a low titer for anti-dsDNA ( positive at 1:10)( spoke with [facility] Rheumatology--overall testing is reassuring--anti-dsDNA is not considered significant) Pain is waxing and waning by history. No redness nor swelling. Can be tender to touch. Often notes cracking of joints as well as abnormal posturing. Seen by Rheumatology ( Dr Almanza of [facility])--diagnosed with amplified pain syndrome-- PT and therapy are primary treatment modalities--additional testing ordered. Family remains concerned due to lack of improvement and uncertain diagnosis ( family questions role of covid 19--never diagnosed--but prolonged suspicious illness last July). Discussed second opinion with [facility] or [facility] mental health facility ( will explore options) Assessment & Plan (03/07/2020 5:13 PM EDT): History of multiple joint complaints with cracking and pain. No swelling nor redness. Also reports significant fatigue. Both large and small joints involved ( including fingers and neck). Under treatment for anxiety and depression which may explain some of the somatic complaints. Lab work was obtained 07/2019 and was unremarkable except for YESICA which showed a homogenous pattern which was positive at 1:80 ( low) Further studies ordered to rule out SLE, all of which are WNL except for a low titer for anti-dsDNA ( positive at 1:10)( spoke with [facility] Rheumatology--overall testing is reassuring--anti-dsDNA is not considered significant) Referral to Rheumatology now planned due to persistent complaints and recent worsening--awoke a few days ago crying due to pain. Treated symptomatically for the last few days ( Aleve 440 mg q 12h )- no clear cut benefit- pain is waxing and waning by history. No redness nor swelling. Can be tender to touch. Often notes cracking of joints as well. Assessment & Plan (03/03/2020 1:45 PM EDT): History of multiple joint complaints with cracking and pain. No swelling nor redness. Also reports significant fatigue . Under treatment for anxiety and depression which may explain somatic complaints, but will obtain screening lab work to rule out underlying pathology. Lab work obtained 07/2019 and was unremarkable except for YESICA which showed a homogenous pattern which was positive at 1:80 ( low) I ordered further studies to rule out SLE, all of which are WNL except for a low titer for anti-dsDNA ( positive at 1:10)( spoke with [facility] Rheumatology--overall testing is reassuring--anti-dsDNA is not considered significant) Referral to Rheumatology now planned due to persistent complaints and recent worsening--awoke last night crying due to pain. Will treat symptomatically for the next few days ( Aleve 440 mg q 12h ) Assessment & Plan (07/09/2019 8:39 AM EST): Tez reports multiple joint complaints with cracking and pain. No swelling nor redness. Also reports significant fatigue . Under treatment for anxiety and depression which may explain somatic complaints, but will obtain screening lab work to rule out underlying pathology. Lab work unremarkable except for YESICA which showed a homogenous pattern which was positive at 1:80 ( low) I have ordered further studies to rule out SLE. May need referral to Rheumatology ( Dr Saldana) if testing is suspicious or joint complaints persist. Assessment & Plan (06/30/2019 1:08 PM EST): Tez reports multiple joint complaints with cracking and pain. No swelling nor redness. Also reports significant fatigue . Under treatment for anxiety and depression which may explain somatic complaints, but will obtain screening lab work to rule out underlying pathology. Central auditory processing disorder 06/30/2019 Overview (06/30/2019): Undergoing assessment via public school system re: school problems. Negley to have NVLD, but there is also a concern about CAP dysfunction. I have not seen any results of school testing, which would be beneficial. If CAP concerns exist, then a referral to [facility] may be worthwhile. Assessment & Plan (06/30/2019 1:05 PM EST): Undergoing assessment via public school system re: school problems. [place] to have NVLD, but there is also a concern about CAP dysfunction. I have not seen any results of school testing, which would be beneficial. If CAP concerns exist, then a referral to [facility] may be worthwhile. Anxiety and depression 06/20/2019 Overview (03/03/2020): Gus reports significant anxiety and depression symptoms for the last 2 years, although recently much worse. There are new stressors recently at school and at home ( older brother is now in the ). He describes a number of anxiety related physical symptoms ( including chest pain, difficulty swallowing and SOB; increased sweating ( mostly palms) and crying). There is no history of suicidal thoughts. Gus is now seeing Venkata Pierce ( sp?) for therapy and Dr German ( in same office in [place]) for medication management. He is now on Sertraline with some perceived benefit, however he reports a history of worsening anxiety and panic attacks ( nearly called the ambulance at one point). Did speak with N with some benefit noted. Initially improved with sertraline, but in the last few weeks he has deteriorated. Current concerns relate to use of synthetic cannabinoids. Admitted to [facility] 12/11/2019 Assessment & Plan (03/03/2020 1:51 PM EDT): Will is now seeing Venkata Pierce ( sp?) for therapy and Dr German ( in same office in [place]) for medication management. He is now on Sertraline with some perceived benefit, however he reports a history of worsening anxiety and panic attacks. Did speak with N with some benefit noted. Initially improved with sertraline, but in the last few weeks he has deteriorated. Current concerns relate to use of synthetic cannabinoids. Admitted to [facility] 12/11/2019 The current medical regimen is effective; continue present plan and medications. Assessment & Plan (12/14/2019 4:40 PM EDT): Will reports significant anxiety and depression symptoms for the last 2 years, although recently much worse. There are new stressors recently at school and at home ( older brother is now in the ). He describes a number of anxiety related physical symptoms ( including chest pain, difficulty swallowing and SOB; increased sweating ( mostly palms) and crying). There is no history of suicidal thoughts. Will is now seeing Dr Falcon for therapy and Dr German ( in [place]) for medication management. He is now on Sertraline with some perceived benefit, however he reports recently worsening anxiety and panic attacks ( nearly called the ambulance last week). Did speak with N with some benefit noted. Initially improved with sertraline, but in the last few weeks he has deteriorated. Current concerns relate to use of synthetic cannabinoids. Admitted to [facility] 12/11/2019 Continue follow-up with --Dr German is exploring options for substance abuse treatment including a treatment facility. Assessment & Plan (11/02/2019 5:53 PM EDT): Will is now seeing Dr Falcon for therapy and Dr German ( in [place]) for medication management. He is now on Sertraline with some perceived benefit, however he reports recently worsening anxiety and panic attacks ( nearly called the ambulance last week). Did speak with [facility] with some benefit noted. Continue to follow-up with psychiatry and psychology. Contact with [facility] was the right choice. Assessment tin ED should be pursued if necessary. Await recommendations from MH specialists. Assessment & Plan (09/12/2019 5:39 PM EDT): Will is now seeing Dr Falcon for therapy and Dr German ( in [place]) for medication management. He is now on Sertraline with perceived benefit. The current medical regimen is effective; continue present plan and medications. Assessment & Plan (07/09/2019 8:36 AM EST): Ongoing problems with anxiety and depression. Currently taking Prozac. In process of establishing care with a therapist and psychiatrist. Scheduled to see Dr Falcon , but has not heard back from him. Unable to see [facility] psychiatry ( now only available to [facility] patients). Mother is till trying to see if she has a provider associated with her work who will be able to see Gus. We have reached out to [facility] as well ( no response yet) Follow clinically. Continue present management. Assessment & Plan (06/30/2019 1:02 PM EST): Will reports significant anxiety and depression symptoms for the last 2 years, although recently much worse. There are new stressors recently at school and at home ( older brother is leaving for the tonight). He describes a number of anxiety related physical symptoms ( including chest pain, difficulty swallowing and SOB; increased sweating ( mostly palms) and crying). There is no history of suicidal thoughts. The family nearly called an ambulance the other night. However, he took one of his mother's Lorazepam and was able to calm down. FH + ; mother has taken Prozac and Effexor as well ans Lorazepam Seen at [facility] ED 06/22/19 following a panic attack --treated with Ativan ( given script for 5 tabs) Started Prozac on 06/20/19; no significant improvement noted, but no side- effects. Will increase Prozac to 20 mg per day. Return in 4 weeks for recheck. Psychiatry referral is recommended ( [facility] v [facility]) Assessment & Plan (06/20/2019 5:37 PM EST): Will reports significant anxiety and depression symptoms for the last 2 years, although recently much worse. There are new stressors recently at school and at home ( older brother is leaving for the tonight). He describes a number of anxiety related physical symptoms ( including chest pain, difficulty swallowing and SOB; increased sweating ( mostly palms) and crying). There has been no history of suicidal thoughts nor self harm. The family nearly called an ambulance the other night. However, he took one of his mother's Lorazepam and was able to calm down. Discussed medication trial. Will start at a low dose Of Prozac and increase in 1-2 weeks if no significant side-effects noted. Discussed potential adverse reactions, especially related to worsening depression and suicidal ideation, dysphoria or unusual sensations. Discussed use of Lorazepam, although do not routinely prescribe this due to concerns about dependence. Strongly recommended referral to a therapist trained in CBT. Discussed benefits of dual treatment with therapy and medications. Yajaira ( [facility] [place]) will try to help facilitate a referral to a therapist ( Dr Falcon; [employer], or alternative) Discussed crisis care and how to access this through [employer] or [facility] ED. Return in 4 weeks for repeat screening and follow-up. Abnormal urination 10/06/2018 Overview (10/28/2018): Seen by Dr Loo--diagnosis of shy bladder --treated with Flomax 0.4 mg q h.s. Attention deficit hyperactiv ity disorder (ADHD), predominantly inattentive type 09/29/2015 Overview (11/02/2019): ADHD and anxiety/depression noted as well as NLVD and possible ASD per school reports. Currently in school in at [employer] ( which seems to be a better fit) (Now involved in remote learning due to COVID 19 outbreak). Has an IEP in place. Doing better overall. Currently seeing psychiatry and a therapist for care. No specific medications for ADHD in use. Assessment & Plan (11/02/2019 5:48 PM EDT): ADHD and anxiety/depression noted as well as NLVD and possible ASD per school reports. Currently in school in at [employer] ( which seems to be a better fit) (Now involved in remote learning due to COVID 19 outbreak). Has an IEP in place. Doing better overall. Currently seeing psychiatry and a therapist for care. No specific medications for ADHD in use. Follow clinically. Continue present management. Assessment & Plan (09/12/2019 5:42 PM EDT): Recent school reports reviewed; ADHD and anxiety/depression noted.NLVD and possible ASD. Now in school in at [employer] ( which seems to be a better fit). Has an IEP in place. Doing better overall ( less frustrated and depressed). Currently seeing psychiatry and a therapist for care. No specific medications for ADHD in use. Follow clinically. Continue present management. Assessment & Plan (02/10/2018 5:17 PM EDT): Follow clinically. Continue present management. Doing well by report. No specific treatment needed. Minimal accommodations. Assessment & Plan (11/14/2016 2:31 PM EDT): Continue present accommodations. Discussed medication trial, but Will is completely opposed to this. May reconsider in the future ( handout given) Resolved Problems Problem Noted Date Diagnosed Date Resolved Date Influenza vaccination declined 09/12/2019 11/02/2019 Skin mass 08/25/2019 03/07/2020 Overview (09/12/2019): Small cystic mass under the left eye. Seen 08/25/[address] Becerra who recommended observation. Will reports that the mass persists, but I can barely feel it today. Continue to follow. Assessment & Plan (09/12/2019 5:44 PM EDT): Small cystic mass under the left eye. Seen 08/25/[address] Becerra who recommended observation. Will reports that the mass persists, but I can barely feel it today. Continue to follow. Assessment & Plan (08/25/2019 4:50 PM EST): This feel benign and cystic. Recommended observation. Option for dermatology referral exists. Will forward to PCP for followup Non-recurrent acute serous o titis media of right ear 08/25/2019 03/07/2020 Overview (09/12/2019): Seen 08/25/2019 with acute otitis media and treated with Amoxicillin. No ongoing otalgia, however he continues to note decreased hearing and cracking noises at times in this ear. Exam is now consistent with FÁTIMA. Assessment & Plan (11/02/2019 5:56 PM EDT): Await ENT appointment when available. Assessment & Plan (09/12/2019 5:01 PM EDT): Seen 08/25/2019 with acute otitis media and treated with Amoxicillin. No ongoing otalgia, however he continues to note decreased hearing and cracking noises at times in this ear. Exam is now consistent with FÁTIMA. Middle Ear Effusion ( FÁTIMA) refers to fluid behind the eardrum. FÁTIMA may have no symptoms, although some children will have transient hearing loss or some abnormal sensations ( TM feeling clogged ; there may be pulling or poking at the ear). Usually FÁTIMA will be a part of a viral URI or follow an episode of otitis media. Typically FÁTIMA will resolve on its own ( but it may take from 6 weeks to a few months) Return if there is acute ear pain, discharge or fever. Assessment & Plan (08/25/2019 4:49 PM EST): Recommend discontinuing Amoxicillin and starting Augmentin as prescribed. Reviewed may take several weeks for fluid to resolve. Followup if persistent pain or fever Other fatigue 06/30/2019 09/12/2019 Overview (06/30/2019): History of fatigue a several weeks. No illness nor fever. I suspect this is inter-related to anxiety and depression, but will obtain screening lab work to rule out any underlying pathology. Assessment & Plan (06/30/2019 1:09 PM EST): History of fatigue a several weeks. No illness nor fever. I suspect this is inter-related to anxiety and depression, but will obtain screening lab work to rule out any underlying pathology. Conductive hearing loss of r ight ear with unrestricted hearing of left ear 02/25/2019 020 Overview (11/02/2019): Seen at [facility] 02/18/19. May relate to cerumen impaction. ENT referral recommended Seen by Dr Corcoran ( [facility]/ [place]) with mild otalgia associated with a deep right ear cerumen impaction ( Ciprodex drops prescribed if needed) Now has ongoing problems with hearing and fullness/ congestion on the left due to otitis media ( clinically improved, but with FÁTIMA) Assessment & Plan (11/02/2019 5:49 PM EDT): Now has ongoing problems with hearing and fullness/ congestion on the left due to otitis media ( clinically improved, but with FÁTIMA) ENT referral is appropriate when possible. Follow clinically. Continue present management. Assessment & Plan (09/12/2019 5:43 PM EDT): Seen at [facility] 02/18/19. May relate to cerumen impaction. ENT referral recommended Seen by Dr Corcoran ( [facility]/ [place]) with mild otalgia associated with a deep right ear cerumen impaction ( Ciprodex drops prescribed if needed) Now has recurrent problems with hearing on the left due to otitis media ( clinically improved, but with FÁTIMA) Follow clinically. Continue present management. Impacted cerumen of right ear 02/25/2019 08/15/2019 Overview (02/25/2019): Noted at audiology visit; may be causing conductive hearing loss Concussion without loss of consciousness 10/06/2018 09/12/2019 Acne vulgaris 02/10/2018 09/12/2019 Assessment & Plan (02/10/2018 5:36 PM EDT): Avoid anything that aggravates your acne. Use caution with cosmetics, skin cleansers and hair products. The most effective OTC medication is benzoyl peroxide ( use products containing 2.5-5% strengths)( the 4% wash is especially worthwhile). Read the handout on how to use your acne medications . Be patient, acne treatments may take 4-8 weeks to show improvement. Return for reassessment in 2 months. Body mass index, pediatric, 85th percentile to less than 95th percentile for age 0208/25/201404/2020 Assessment & Plan (02/10/2018 5:16 PM EDT): Discussed appropriate nutrition and diet. Avoid non-nutritious foods and snacks. Encourage exercise. (Sixty minutes of physical exercise a day is recommended). Limit screen time. Follow-up at next [facility]. Immunizations Immunization Administration Dates Next Due DTaP 5 10/22/2007, 4,03/09/2003,12/28,2002 HPV Vaccine 9 Valent 02/10/2018 Hep B, ped/adol 06/14/2003,2002,2002 Hib (HbOC) 01/29/2004, 3,2002,10/20 IPV 10/22/2007, 4,2002,10/20 Influenza, injectable, quadr ivalent, preservative free 05/01/2016 Influenza, injectable, triva lent, preservative free 07/19/2012 Influenza, intranasal, trivalent 05/25/2013,03/06 MMR 03/27/2008,01/29/2004 Meningococcal Conj (Menactra) MCV4P 09/12/2019 Pneumococcal Conjugate 03/09/2003,2002, Tdap 08/25/2014 Varicella 03/27/2008,08/28/2003 Social History Tobacco Use Types Packs/Day Years Used Date Smoking Tobacco: Never Hunger/Food Answer Date Recorded In the last 12 months, did y ou or your family ever eat less than you felt you should because there wasn't enough money for food? No 09/12/2019 Stable Housing Answer Date Recorded Are you worried that in the next 2 months you may not have stable housing? No 09/12/2019 Transportation Concerns Answer Date Rec orded In the last 12 months, have you or your family ever had to go without healthcare because you didn't have a way to get there? No 09/12/2019 Hazards in Home Answer Date Recorded Think about the place you li ve. Do you have problems with any of the following? Pests (mice or roaches), mold, no/not working smoke detectors, water leaks, no window guards. No 2019 Financing Utilities Answer Date Recorde d In the last 12 months, has t he electric, gas, oil, or water company threatened to shut off your services in your home? No 09/12/2019 Safety at Home Answer Date Recorded Are you or your family worried about feeling saf e in your home? No 09/12/2019 Outside Support Answer Date Recorded Do you feel that you need mo re support from other people or programs to help you care for yourself or your family? No 09/12/2019 Understanding Health Concerns Answer Da te Recorded Do you need help understandi ng your or your child's healthcare needs (diagnosis, medications, plan, etc.)? No 09/12/2019 Financing Health Concerns Answer Date R ecorded In the last 12 months, was t here a time when your child needed to see a doctor or get medications or supplies but could not because of cost? No 09/12/2019 Missing School or Work Answer Date Case rded Did you or your child miss s chool or work because of a health problem that could have been avoided? No 09/12/2019 Sex and Gender Information Value Date Recorded Sex Assigned at Not on file Legal Sex Male 4:08 PM EST Gender Identity Not on file Sexual Orientation Not on file Last Filed Vital Signs Vital Sign Reading Time Taken Comments Blood Pressure 120/80 09/06/2021 3:37 PM EST Pulse 70 09/06/2021 3:37 PM EST Temperature 37 C (98.6 F) 08/25/2019 4:17 PM EST Respiratory Rate 20 10/06/2018 4:45 PM EDT Oxygen Saturation 98% 08/25/2019 4:17 PM EST Inhaled Oxygen Concentration - - Weight 62.1 kg (137 lb) 09/06/2021 3:37 PM EST Height 181 cm (5' 11.25 ) 09/12/2019 4:18 PM EDT Body Mass Index - - Plan of Treatment Health Maintenance Due Date Last Done Comments HPV Vaccines (2 - Male 3-dose series) 03/10/2018 02/10/2018 Men B Vaccine (1 of 2 - Standard) 2018 DTaP,Tdap,and Td Vaccines (7 - Td or Tdap) 08/25/2024 08/25/2014, 10/22/2007, 04/01/2004, Additional history exists Influenza Vaccines (#1) 2025 05/01/20 16, 05/25/2013, 07/19/2012, Additional history exists COVID-19 Vaccine (3 - season) 2025 11/10/2020, 10/20/2020 Pneumococcal Vaccine Aged Out 03/09/2003, 2002, 2002 No longer eligible based on patient's age to complete this topic Hepatitis B Vaccines Completed 06/14/2003, 2002, 2002 HIB Vaccines Completed 01/29/2004, 10/2002, 2002, Additional history exists IPV Vaccines Completed 10/22/2007, 08/07, 2002, Additional history exists MMR Vaccines Completed 03/27/2008, 01/29/2004 Varicella Vaccines Completed 03/27/2008, 08/28/2003 Meningococcal Vaccine Completed 09/12/2019 Hepatitis A Vaccines Aged Out No long er eligible based on patient's age to complete this topic Insurance [facility] [employer] [facility] [employer]
--- OUTSIDE RECORDS SUMMARY | 2025-06-11 21:00 | XMS_ITS | Encounter Summary ---
Author Organization [facility] Address [address] [place] [address] Phone Care Team Providers Care Chocolate Packer Name Role Phone Viviana Quarles MD Primary Care Provider [phone] Encounter Details Date Type Department Care Team (Late st Contact Info) Description 03/24/2010 Nurse Only [address] [place] [address] Social History Tobacco Use Types Packs/Day Years Used Date Smoking Tobacco: Never Assessed Sex and Gender Information Value Date Recorded Sex Assigned at Not on file Legal Sex Male 4:08 PM EST Gender Identity Not on file Sexual Orientation Not on file documented as of this encounter Nursing Notes * UNKNOWN, HISTORICAL - 03/24/2010 2:40 PM EDT Tez Keyes. 2000 NURSE NOTE/VERBAL ORDERS Office/Outpatient Visit Visit Date: Mar 24, 2010 02:40 pm Provider: Jordyn Junior LPN (Clinical Leader: Neela Ayala MD) Location: [facility]. ECTIVE: CC: He is here for the Flu Clinic. HPI: No known chronic health conditions. Fever or illness is not present today. No trouble breathing or hives after eating eggs He has not had a reaction to the flu vaccine or other immunization. Flu vaccine VIS was given today.(interim 02/12/10) There were no questions or concerns voiced at today's visit. OBJECTIVE: Exams: GENERAL APPEARANCE: Alert, active, looks well, mood appropriate ASSESSMENT: V04.81 Flu Clinic ORDERS: Procedures Ordered: Flu Vaccine live, Intranasal use Immunization administration (includes percutaneous, intradermal, subcutaneous or intramuscular injec PLAN: Flu Clinic Influenza intranasal vaccine given No contraindications noted for flu vaccines. Tolerated well, left office in good condition. Orders: Flu Vaccine live, Intranasal use Immunization administration (includes percutaneous, intradermal, subcutaneous or intramuscular injec Patient Recommendations: For Flu Clinic: Influenza (Given) CHARGE CAPTURE: Primary Diagnosis: V04.81 Flu Clinic Orders: [id number] Flu Vaccine live, Intranasal use [id number] Immunization administration (includes percutaneous, intradermal, subcutaneous or intramuscular injec documented in this encounter Plan of Treatment Not on file documented as of this encounter Visit Diagnoses Not on filedocumented in this encounter Care Teams Chocolate Packer Relationship Specialty Start Date End Date Viviana Quarles MD [address] [place] [id number] PCP - General Pediatrics 07/15/22 02/11/23 documented as of this encounter
--- OUTSIDE RECORDS SUMMARY | 2025-06-11 21:00 | XMS_ITS | Encounter Summary ---
Author Organization [facility] Address [address] [place] [address] Phone Care Team Providers Care Manager Procurement Name Role Phone Viviana Quarles MD Primary Care Provider [phone] Encounter Details Date Type Department Care Team (Late st Contact Info) Description 05/01/2016 Nurse Only [place] [address] [place] [id number] Social History Tobacco Use Types Packs/Day Years Used Date Smoking Tobacco: Never Assessed Sex and Gender Information Value Date Recorded Sex Assigned at Not on file Legal Sex Male 4:08 PM EST Gender Identity Not on file Sexual Orientation Not on file documented as of this encounter Nursing Notes * UNKNOWN, HISTORICAL - 05/01/2016 4:29 PM EDT Tez Keyes. 2000 NURSE NOTE/VERBAL ORDERS Office/Outpatient Visit Visit Date: May 01, 2016 04:29 pm Provider: JENNY Elliott (Mill Platform Supervisor: Zita Becerra MD) Location: [facility]. ECTIVE: CC: He is here for the Flu Clinic. Here with dad. HPI: No known chronic health conditions. Fever or illness is not present today. No trouble breathing or hives after eating eggs He has not had a reaction to the flu vaccine or other immunization. Flu vaccine VIS was given today.(dated 02/09/15) There were no questions or concerns voiced at today's visit. PMH/FMH/SH: Last Reviewed on 09/29/2015 10:44 AM by Johan Arango Past Medical History: Attention Deficit Disorder: dx'd in 12/15; with working memory problems; Fracture(s): left little finger; Neck mass/ lymphadenopathy. 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 Social History: Family members: Parent: Vannesa Huerta (Mom) Parent: Bryant Siblings: Carlos FIORE 03/31/00 - Currently in Middle School. ( [employer]); 7th grade ) 09/18 Hobbies and recreational interests include computers and sports ( basketball, running, soccer ). limited exercise Communicable Diseases (eg STDs): Cholesterol: (146) 02/21/13 Current Problems: Attention deficit disorder BMI >85th but < 95th %ile Sore throat Allergies: Last Reviewed on 09/28/2015 03:52 PM by Hannah Galeana No Known Drug Allergies. Current Medications: Last Reviewed on 09/28/2015 04:06 PM by Hannah Galeana None ASSESSMENT: V04.81 Flu Clinic ORDERS: Procedures Ordered: Immunization administration (includes percutaneous, intradermal, subcutaneous or intramuscular injec (In-House) Other Orders: Influenza vac 4 valent prsrv free 3 yrs plus IM (In-House) PLAN: Flu Clinic Influenza vaccine > 3 yr (Preservative Free) given No contraindications noted for flu vaccines. Tolerated well, left office in good condition. Orders: Influenza vac 4 valent prsrv free 3 yrs plus IM (In-House) Immunization administration (includes percutaneous, intradermal, subcutaneous or intramuscular injec (In-House) CHARGE CAPTURE: Primary Diagnosis: V04.81 Flu Clinic Z23 Encounter for immunization Orders: [id number] Influenza vac 4 valent prsrv free 3 yrs plus IM (In-House) [id number] Immunization administration (includes percutaneous, intradermal, subcutaneous or intramuscular injec (In-House) documented in this encounter Plan of Treatment Not on file documented as of this encounter Visit Diagnoses Not on filedocumented in this encounter Care Teams Manager Procurement Relationship Specialty Start Date End Date Viviana Quarles MD [address] [place] [id number] PCP - General Pediatrics 07/15/22 02/11/23 documented as of this encounter
--- OUTSIDE RECORDS SUMMARY | 2025-06-11 21:00 | XMS_ITS | Encounter Summary ---
Author Organization [facility] Address [address] [place] [address] Phone Care Team Providers Care Tour Narrator Name Role Phone Viviana Quarles MD Primary Care Provider [phone] Reason for Visit * Reason Comments Med Refill Encounter Details Date Type Department Care Team (Late st Contact Info) Description 04/01/2020 Refill [facility], [address] [place] [address] Eddi Arango MD Chronic pain of multiple joints Social History Tobacco Use Types Packs/Day Years [...] on file documented as of this encounter Plan of Treatment Not on file documented as of this encounter Visit Diagnoses Diagnosis Chronic pain of multiple joints documented in this encounter Care Teams Tour Narrator Relationship Specialty Start Date End Date Viviana Quarles MD [address] [place] [id number] PCP - General Pediatrics 07/15/22 02/11/23 documented as of this encounter
--- OUTSIDE RECORDS SUMMARY | 2025-06-11 21:00 | XMS_ITS | Clinical Summary ---
Author Organization [facility] 's Address [address] [place] [address] Care Team Providers Care Pants Presser Name Role Phone Eddi Arango MD Primary Care Provider [phone] Source Comments Please note that some or all of the patient's information could have additional privacy protections. State laws allow health care providers to render certain types of treatment to minors without parental consent. Please do not assume that this information can be shared solely by obtaining just the consent of the patient's parent/guardian. Please determine if all or part of the patient's care was rendered without parent/guardian involvement. And, if so, obtain the minor's consent prior to disclosure.[facility] Allerg[facility] No known active allergies Medications No known medications Active Problems Problem Noted Date Diagnosed Date Weight loss 03/03/2020 Overview (04/03/2020): Previous history of weight loss ( see growth chart)--mother now reports ongoing weight loss since July. Weight today is stable ( actually slightly improved since last winter) Reassurance given. Last Assessment & Plan: Previous history of weight loss ( see growth chart)--mother now reports ongoing weight loss since July. Weight today is stable ( actually slightly improved since last winter) Reassurance given. Follow clinically. Continue present management. Other chest pain 11/02/2019 Overview (04/03/2020): Will reports frequent episodes of chest pain which may relate to a prolonged illness several months ago ( family questions whether this was COVID 19, although it occurred prior to any known cases in [place]). Chest pain may also reflect anxiety. Will has been seen by Cardiology ( Dr Healy)-- he feels that the pain is benign musculoskeletal pain augmented by anxiety--he will obtain a Holter Monitor test for confirmation Last Assessment & Plan: Will has been seen by Cardiology ( Dr Healy)-- he feels that the chest pain is benign musculoskeletal pain augmented by anxiety--he will obtain a Holter Monitor test for confirmation Central auditory processing disorder 06/30/2019 Overview (04/03/2020): Undergoing assessment via public school system re: school problems. [place] to have NVLD, but there is also a concern about CAP dysfunction. I have not seen any results of school testing, which would be beneficial. If CAP concerns exist, then a referral to [facility] may be worthwhile. Last Assessment & Plan: Undergoing assessment via public school system re: school problems. [place] to have NVLD, but there is also a concern about CAP dysfunction. I have not seen any results of school testing, which would be beneficial. If CAP concerns exist, then a referral to [facility] may be worthwhile. Chronic pain of multiple joints 06/30/2019 Overview (04/03/2020): History of multiple joint complaints with cracking [...] anti-dsDNA ( positive at 1:10)( spoke with [facility] Rheumatology--overall testing is reassuring--anti-dsDNA is not [...] of joints as well as abnormal posturing. Prescribed Naproxen for short course due to increasing pain. Has Rheumatology visit next week ( 04/03)--await consult report. Last Assessment & Plan: History of multiple joint complaints with cracking [...] anti-dsDNA ( positive at 1:10)( spoke with [facility] Rheumatology--overall testing is reassuring--anti-dsDNA is not [...] Often notes cracking of joints as well. Anxiety and depression 06/20/2019 Overview (04/03/2020): Gus reports significant anxiety and depression symptoms [...] of suicidal thoughts. Will is now seeing Venkata Pierce ( sp?) for therapy and Dr German ( in same office in [place]) for medication management. He is now on Sertraline with some perceived benefit, however he reports a history of worsening anxiety and panic attacks ( nearly called the ambulance at one point). Did speak with N with some benefit noted. Initially improved with sertraline, but in the last few weeks he has deteriorated. Current concerns relate to use of synthetic cannabinoids. Admitted to [facility] 12/11/2019 Last Assessment & Plan: Will is now seeing Venkata Corcoran sp?) for therapy and Dr German ( in same office in [place]) for medication management. He is now on Sertraline with some perceived benefit, however he reports a history of worsening anxiety and panic attacks. Did speak with N with some benefit noted. Initially improved with sertraline, but in the last few weeks he has deteriorated. Current concerns relate to use of synthetic cannabinoids. Admitted to [facility] 12/11/2019 The current medical regimen is effective; continue present plan and medications. Attention deficit hyperactiv ity disorder (ADHD), predominantly inattentive type 09/29/2015 Overview (04/03/2020): ADHD and anxiety/depression noted as well as NLVD and possible ASD per school reports. Currently in school in at [employer] ( which seems to be a better fit) (Now involved in remote learning due to COVID 19 outbreak). Has an IEP in place. Doing better overall. Currently seeing psychiatry and a therapist for care. No specific medications for ADHD in use. Last Assessment & Plan: ADHD and anxiety/depression noted as well as NLVD and possible ASD per school reports. Currently in school in at [employer] ( which seems to be a better fit) (Now involved in remote learning due to COVID 19 outbreak). Has an IEP in place. Doing better overall. Currently seeing psychiatry and a therapist for care. No specific medications for ADHD in use. Follow clinically. Continue present management. Family History Medical History Relation Name Comments Irritable bowel syndrome Father Pain Father neck and should er pain Fibromyalgia Maternal Aunt Celiac disease Mother Fibromyalgia Mother Dermatomyositis Neg Hx Juvenile idiopathic arthritis Neg Hx Lupus Neg Hx Rheum arthritis Neg Hx Rheumatologic disease Neg Hx Scleroderma Neg Hx Sjogren's syndrome Neg Hx Thyroid disease Neg Hx Relation Name Status Comments Father Maternal Aunt Mother Social History Tobacco Use Types Packs/Day Years Used Date Smoking Tobacco: Never Other Needs Answer Date Recorded Anything else about your child you'd like help w ith? Not on file 03/20/2023 Share good news about positive changes: Not on f ile 03/20/2023 Sex and Gender Information Value Date Recorded Sex Assigned at Not on file Legal Sex Male 2:00 PM EDT Gender Identity Not on file Sexual Orientation Not on file Last Filed Vital Signs Vital Sign Reading Time Taken Comments Blood Pressure 136/75 05/21/2020 3:03 PM EST Pulse 68 05/21/2020 3:03 PM EST Temperature - - Respiratory Rate - - Oxygen Saturation - - Inhaled Oxygen Concentration - - Weight 69.4 kg (153 lb) 05/21/2020 3:03 PM EST Height 180.4 cm (5' 11.02 ) 05/21/2020 3:[address] Body Mass Index 21.32 05/21/2020 3:03 PM EST Plan of Treatment Health Maintenance Due Date Last Done Comments DTaP/TDAP/TD VACCINES (1 - Tdap) 2009 ADOLESCENT HIV SCREENING 2015 COVID-19 Vaccine (1 - 2023-2 5 season) 2025 INFLUENZA (#1) 2025 NIRSEVIMAB VACCINES UNDER 8 MONTHS Aged Out No longer eligible based on patient's age to complete this topic Insurance [employer] Care Teams Pants Presser Relationship Specialty Start Date End Date Eddi Arango MD [address] [place] [address] PCP - General 03/19/20
[2025-06-11 21:05] VITALS: BP 142/86; PULSE 84; RESP 16; TEMP 36.4; O2SAT 97
[2025-06-11 21:06] VITALS: BP 144/84; BP 158/96; PULSE 80; PULSE 93
[2025-06-11 22:15] VITALS: BP 129/81; PULSE 73; RESP 18; TEMP 36.7; O2SAT 98
[2025-06-12 00:29] LABS: Appearance Urine Clear; Glucose Urine UA Negative (Negative); PH 6.5 (5.0-9.0); Specific Gravity - Urine 1.010 (1.005-1.025)
[2025-06-12 00:30] VITALS: BP 135/91; PULSE 82; RESP 16; TEMP 36.7; O2SAT 98
[2025-06-12 00:38] VITALS: BP 135/91; PULSE 82; RESP 16; TEMP 36.7; O2SAT 98
== END 2025-06-12 00:39 | disposition home or self-care (01) ==
PROVIDERS: Physician Assistant; Emergency Provider Emergency Medicine
DX: R55 Syncope and collapse (principal); R53.1 Weakness; M54.2 Cervicalgia; F32.9 Major depressive disorder, single episode, unspecified; R09.3 Abnormal sputum; F11.11 Opioid abuse, in remission; Z72.0 Tobacco use; Z03.818 Encounter for observation for suspected exposure to other biological agents ruled out
CPT/HCPCS: 71046; 80048; 80076; 81003; 83735; 84443; 85025; 87637; 93005; 99284

== ENCOUNTER → 2025-06-11 17:57 | Outpatient (BNV) | payer OTHER, SELFPAY | PROVIDERS: Emergency Provider Emergency Medicine; Visit Provider Internal Medicine Cardiovascular Disease | DX: R00.0 Tachycardia, unspecified (principal) | CPT/HCPCS: 93010 ==

== ENCOUNTER → 2025-06-12 | Outpatient (BNV) | payer OTHER, SELFPAY | PROVIDERS: Emergency Provider Emergency Medicine; Visit Provider Radiology Diagnostic Radiology | DX: R05.9 Cough, unspecified (principal); R55 Syncope and collapse | CPT/HCPCS: 71046 ==